=== PATIENT | female | born 1960 | race Caucasian/White ===

== ENCOUNTER 2016-09-21 14:20 | Outpatient (CLI) | payer MEDICAID ==
[~2016-09-21 14:20] MED LIST: ACYC400T PO; ASPI-983 PO; BUDE10.22 IH; CALC-140 PO; CHOL10007 PO; CNC1KV IN; DICL75TA2 PO; EPIN0.3P3 IJ; FLUT16SP22 NSEACH; HYDR-3820 PO; HYDR25SU5 RC; IBUP-2055 PO; MELO7.5T46 PO; METR500T21 PO; MONT10TA21 PO; MONT10TA24 PO; MULT1TAB69 PO; NF-ESOM40C PO; OMEP20CA12 PO; OXYC-197 PO; PRAV20TA3 PO; PRAV40TA2 PO; RT-ALBUINH IH; SUMA100T2 PO; SUMA100T3 PO; ZOLP10TA PO; ZOLP10TA5 PO
== END 2016-09-21 14:42 | disposition home or self-care (01) ==
LOC: SLEEP 14:20
PROVIDERS: ATTEND Nurse Practitioner Family
DX: G47.50 Parasomnia, unspecified (principal); G47.09 Other insomnia; R53.83 Other fatigue

== ENCOUNTER 2016-09-30 13:55 | Outpatient (CLI) | payer MEDICAID | END 2016-09-30 15:00 | disposition home or self-care (01) | LOC: SLEEP 13:55 | PROVIDERS: ATTEND Nurse Practitioner Family | DX: G47.50 Parasomnia, unspecified (principal); G47.09 Other insomnia; R53.83 Other fatigue ==

== ENCOUNTER → 2017-01-26 | Outpatient (CLI) | payer MEDICAID ==
--- NOTE | 2017-01-27 17:43 | Diagnostic Imaging Report ---
EXAMINATION: Bilateral digital screening mammogram with CAD. The current study was also evaluated with a Computer Aided Detection (CAD) system. INDICATION: Screening. No current complaints stated on the questionnaire. COMPARISON: 01/28/16. FINDINGS: The breasts are composed of scattered fibroglandular densities. There is a stable circumscribed nodule in the axillary tail of the right breast suggestive of an intramammary lymph node. Allowing for technique and positional differences, no suspicious change is seen. IMPRESSION: No significant change. ACR BI-RADS Category 2: Benign findings. Result letter will be mailed to the patient. Note: At least 10% of breast cancer is not imaged by mammography. Dictated by: Dictated on workstation # [id number]
== END ==
LOC: RAD 14:36
PROVIDERS: ATTEND Nurse Practitioner Community Health
DX: Z12.31 Encounter for screening mammogram for malignant neoplasm of breast (principal)
CPT/HCPCS: 77067

== ENCOUNTER → 2017-04-19 | Outpatient (CLI) | payer MEDICAID ==
--- NOTE | 2017-04-19 11:44 | Diagnostic Imaging Report ---
EXAMINATION: Bilateral renal ultrasound. INDICATION: History of cysts. FINDINGS: The right kidney is 10.6 and the left kidney is 9.8 cm in length. Simple appearing cysts up to 2 cm in the lower pole of the right kidney are seen. No hydronephrosis. No solid mass. The bladder appears empty and is not well evaluated. IMPRESSION: Simple appearing cysts up to 2 cm in the right kidney are seen. Dictated by: Dictated on workstation # [id number]
== END ==
LOC: RAD 09:30
PROVIDERS: ATTEND Nurse Practitioner Community Health
DX: N28.1 Cyst of kidney, acquired (principal)
CPT/HCPCS: 76770

== ENCOUNTER → 2017-04-19 | Outpatient (CLI) | payer MEDICAID ==
--- NOTE | 2017-04-19 10:42 | Diagnostic Imaging Report ---
PROCEDURE: US Gallbladder. TECHNIQUE: Multiple real-time grayscale images were obtained over the right upper quadrant in various projections. INDICATION: Right upper quadrant abdominal pain. COMPARISON: None. FINDINGS: Normal echogenicity of liver with no focal mass or cyst. No intrahepatic biliary ductal dilatation. The common bile duct measures 4 mm. There is a 1.3 cm mobile stone within the gallbladder. Normal gallbladder wall thickness of 0.2 cm. No pericholecystic fluid. Negative sonographic Montgomery sign. The pancreas is obscured by bowel gas. The right kidney measures 9.9 cm. There are simple appearing cysts in the right kidney measuring up to 2.0 and 1.0 cm. No free fluid in the visualized abdomen. IMPRESSION: Cholelithiasis. No secondary findings of cholecystitis. Dictated by: Dictated on workstation # [id number]
== END ==
LOC: RAD 09:32
PROVIDERS: ATTEND Surgery
DX: K80.20 Calculus of gallbladder without cholecystitis without obstruction (principal)
CPT/HCPCS: 76705

== ENCOUNTER → 2017-04-27 | Outpatient (CLI) | payer MEDICAID | LOC: PREOP 05:40 | PROVIDERS: ATTEND Surgery | DX: Z01.818 Encounter for other preprocedural examination (principal); K80.20 Calculus of gallbladder without cholecystitis without obstruction ==

== ENCOUNTER → 2017-07-05 | Outpatient (CLI) | payer MEDICAID ==
[2017-07-05 11:23] LABS: BILIRUBIN,DIRECT 0.4 MG/DL (0.0-0.3); BILIRUBIN,INDIRECT 0.9 MG/DL; BILIRUBIN,TOTAL 1.3 MG/DL (0.1-1.0); TOTAL PROTEIN 6.4 GM/DL (6.4-8.2)
== END ==
LOC: LAB 10:46
PROVIDERS: ATTEND Surgery
DX: K80.20 Calculus of gallbladder without cholecystitis without obstruction (principal)
CPT/HCPCS: 36415; 80076

== ENCOUNTER 2017-07-11 11:17 | Day surgery (SDC) | payer MEDICAID ==
[~2017-07-11] VITALS: Ht 162.6 cm; Wt 73.5 kg
--- OUTSIDE RECORDS SUMMARY | 2017-07-11 11:35 | XMS REPORT | Clinical Summary ---
Author Author [facility] Organization [facility] Address Unknown Phone Unavailable Care Team Providers Care Child Support Case Officer Name Role Phone JordyCheri COMPUTER OPERATIONS MANAGER PCP Source Comments Some departments are not documenting in the electronic medical record. If you do not see the information that you expected, contact Release of Information in the Health Information Management department at [phone] for further assistance in locating additional records.[facility] Allergies Active Allergy Reactions Severity Noted Date Comments Adhesive Tape (Rosins) RASH, EDEMA Medium 01/24/2017 Bumble Bee PALPITATIONS High 01/24/2017 Cephalexin HIVES, RASH Medium 01/24/2017 Current Medications Prescription Sig. Disp. Refills Start End Date Status Date traZODone (DESYREL) 100 Take 100 mg by mouth at Active mg tablet bedtime daily. sertraline (ZOLOFT) 100 Take 100 mg by mouth Active mg tablet daily. HYDROcodone/acetaminophen Take 1 tablet by mouth Active (+) (NORCO) 10/325 mg every 6 hours as needed tablet for Pain CALCIUM CARBONATE/VITAMIN Take by mouth. Active D3 (CALCIUM + D PO) pantoprazole DR Take 40 mg by mouth Active (PROTONIX) 40 mg tablet daily. cyanocobalamin (VITAMIN Inject 1 mL into the Active B-12, RUBRAMIN) 1,000 muscle every 30 days. mcg/mL injection EPINEPHRINE (EPIPEN IJ) Inject to area(s) as Active directed. budesonide/formoterol Inhale 2 puffs by mouth Active (SYMBICORT HFA) 80-4.5 into the lungs twice mcg/actuation inhalation daily. fluticasone (FLONASE) 50 Apply to each nostril as Active mcg/actuation nasal spray directed daily. Shake bottle gently before using. ASCORBATE CALCIUM Take by mouth. Active (VITAMIN C PO) meloxicam (MOBIC) 7.5 mg Take 7.5 mg by mouth Active tablet daily. albuterol (PROAIR HFA) 90 Inhale 2 puffs by mouth Active mcg/actuation inhaler into the lungs every 6 hours as needed for Wheezing or Shortness of Breath. Shake well before use. sumatriptan succinate Take 100 mg by mouth as Active (IMITREX) 100 mg tablet Needed for Migraine symptoms. Dose may be repeated in 2 hours if needed. Max of 2 tablets in 24 hours. atorvastatin (LIPITOR) 20 Take 20 mg by mouth Active mg tablet daily. mometasone (NASONEX) 50 Apply 2 sprays to each Active mcg/actuation nasal spray nostril as directed daily. lisdexamfetamine Take 30 mg by mouth every Active (VYVANSE) 30 mg capsule morning topiramate (TOPAMAX) 25 Take 25 mg by mouth as Active mg sprinkle capsule directed twice daily. omeprazole DR(+) Take 20 mg by mouth daily Active (PRILOSEC) 20 mg capsule before breakfast. aspirin EC 81 mg tablet Take 81 mg by mouth Active daily. Take with food. tiZANidine (ZANAFLEX) 4 Take 0.5-1 tablets by 30 tablet 5 04/22/20 Active mg tabletIndications: mouth at bedtime as 17 MUSCLE SPASM needed. Indications: MUSCLE SPASM gabapentin (NEURONTIN) TAKE ONE CAPSULE BY MOUTH 90 capsule 5 Active 300 mg capsule ONCE DAILY AT BEDTIME FOR 18 5 DAYS; ONE CAP TWICE DAILY FOR 5 DAYS; ONE CAP THREE TIMES DAILY THEREAFTER Active Problems No known active problems Encounters Date Type Specialty Care Team Description 05/26/2017 Refill Anesthesia Pain Cy Parker MD 04/22/2017 Refill Anesthesia Pain Maria C Cerrato RN from Last 3 Months Family History Medical History Relation Name Comments Arthritis Father Back pain Father Cancer Father Heart problem Father Hypertension Father Kidney Disease Father Arthritis Mother Back pain Mother Hypertension Mother Relation Name Status Comments Father Mother Alive Social History Tobacco Use Types Packs/Day Years Used Date Former Smoker Smokeless Tobacco: Former Quit: User 05/26/2014 Alcohol Use Drinks/Week oz/Week Comments No Sex Assigned at Date Recorded Not on file Last Filed Vital Signs Vital Sign Reading Time Taken Blood Pressure 123/85 03/08/2017 1:20 PM SUPERVISOR BENZENE REFINING Pulse 82 03/08/2017 1:20 PM SUPERVISOR BENZENE REFINING Temperature 36.6 C (97.8 F) 03/08/2017 1:10 PM SUPERVISOR BENZENE REFINING Respiratory Rate 18 03/08/2017 12:09 PM SUPERVISOR BENZENE REFINING Oxygen Saturation 98% 03/08/2017 1:20 PM SUPERVISOR BENZENE REFINING Inhaled Oxygen - - Concentration Weight 68 kg (150 lb) 03/08/2017 12:09 PM SUPERVISOR BENZENE REFINING Height 160 cm (5' 3") 03/08/2017 12:09 PM SUPERVISOR BENZENE REFINING Body Mass Index 26.57 03/08/2017 12:09 PM SUPERVISOR BENZENE REFINING Plan of Treatment Health Maintenance Due Date Last Done Comments HEPATITIS C SCREENING 1960 PHYSICAL (COMPREHENSIVE) 1967 EXAM PERTUSSIS VACCINE 1971 HIV SCREENING 1975 TETANUS VACCINE 1977 CERVICAL CANCER SCREENING 1990 BREAST CANCER SCREENING 2000 COLORECTAL CANCER 2010 SCREENING INFLUENZA VACCINE 01/30/2018 Results Not on filefrom Last 3 Months
--- OUTSIDE RECORDS SUMMARY | 2017-07-11 11:35 | XMS REPORT | Encounter Summary ---
Author Author [facility] Organization [facility] Address Unknown Phone Unavailable Care Team Providers Care Oilfield Plant And Field Operator Name Role Phone JordyCheri sands DATA MIGRATION LEAD PCP Reason for Visit * Reason Comments Medication Refill Encounter Details Date Type Department Care Team Description 05/26/2017 Refill Spine Center Anesthesia Cy Parker MD [facility] [address] [place] [address] [place] [address] [phone] Social History Tobacco Use Types Packs/Day Years Used Date Former Smoker Smokeless Tobacco: Former Quit: User 05/26/2014 Alcohol Use Drinks/Week oz/Week Comments No Sex Assigned at Date Recorded Not on file as of this encounter Functional Status Functional Status Response Date of Assessment Does the patient have a hearing impairment: No 03/08/2017 Does the patient have a visual impairment: Yes 03/08/2017 Does the patient have impaired ambulation: No 03/08/2017 Does the patient have an activity of daily living No 03/08/2017 (ADL) impairment: Does the patient have an instrumental activity of No 03/08/2017 daily living (IADL) impairment: Cognitive Status Response Date of Assessment Does the patient have a cognitive impairment: No 03/08/2017 as of this encounter Miscellaneous Notes * Telephone Encounter - Maria C Cerrato RN - 05/26/2017 4:37 PM CENTRIFUGAL SUPERVISOR Refill request for gabapentin 300 mg po tid Date of last refill per chart 01/24/2017. Last visit 03/08/2017. Follow up appointment n/a. Refill per protocol. in this encounter Plan of Treatment Not on fileas of this encounter Visit Diagnoses Not on filein this encounter
--- OUTSIDE RECORDS SUMMARY | 2017-07-11 11:35 | XMS REPORT | Encounter Summary ---
Author Author [facility] Organization [facility] Address Unknown Phone Unavailable Care Team Providers Care Medical Planner Name Role Phone Cheri Spence RECEIVING ASSOCIATE STORE PCP Reason for Visit * Reason Comments Medication Refill Encounter Details Date Type Department Care Team Description 04/22/2017 Refill Spine Center Anesthesia Maria C Cerrato RN [facility] [address] [place] [id number] Social History Tobacco Use Types Packs/Day Years [...] Encounter - Maria C Cerrato RN - 04/22/2017 10:39 AM MUSIC DEPARTMENT CHAIR Refill request for refill of tizanidine 4 mg po qhs prn Date of last refill per chart or pharmacy 03/27/2017. Last office visit 03/08/2017. Follow up appointment n/a. Provider notified Yes. in this encounter Plan of Treatment Not on fileas of this encounter Visit Diagnoses Not on filein this encounter
--- OUTSIDE RECORDS SUMMARY | 2017-07-11 11:37 | XMS REPORT | Continuity of Care Document ---
Author Author [facility] Organization [facility] Address Unknown Phone Unavailable Allergies Active Description Code Type Severity Reaction Onset Reported/Identified Relationship to Patient Clinical Status Yes No Allergy Information Available [id number] Drug Allergy Unknown N/A 2013 Yes sulfamethoxazole [id number] Drug Allergy Unknown N/A 03/14/2015 Yes trimethoprim [id number] Drug Allergy Unknown N/A 03/14/2015 Medications There is no data. Problems Date Dx Coded Attending Type Code Diagnosis Diagnosed By 03/31/1329 BERNARDO COBIAN, DEMETRIA Holley Ot M19.012 PRIMARY OSTEOARTHRITIS, LEFT SHOULDER 09/06/2013 JEFF CRUM HOUSE PIPING INSPECTOR Ot 728.87 MUSCLE WEAKNESS (GENERALIZED) 09/06/2013 JEFF CRUM HOUSE PIPING INSPECTOR Ot V43.65 KNEE JOINT REPLACEMENT STATUS 09/06/2013 JEFF CRUM HOUSE PIPING INSPECTOR Ot V57.1 PHYSICAL THERAPY NEC 03/14/2014 JANINE PERAZAP Ot 724.3 03/14/2014 JANINE PERAZAP Ot V57.1 03/15/2014 JANINE PERAZA HOUSE PIPING INSPECTOR Ot 724.3 03/15/2014 JANINE PERAZAP Ot V57.1 03/15/2014 DEMETRIA PHILLIPS MD Ot 305.1 03/15/2014 DEMETRIA PHILLIPS MD Ot 306.4 03/15/2014 DEMETRIA PHILLIPS MD Ot 478.19 03/26/2014 JANINE PERAZAP Ot V76.12 04/05/2014 JANINE PERAZAP Ot 724.3 04/05/2014 JANINE PERAZAP Ot V57.1 04/05/2014 JANINE PERAZAP Ot 724.3 04/05/2014 JANINE PERAZAP Ot V57.1 04/08/2014 DEMETRIA PHILLIPS MD Ot 305.1 04/08/2014 DEMETRIA PHILLIPS MD Ot 306.4 04/08/2014 JACQUELINE COBIAN, DEMETRIA P Ot 478.19 04/11/2014 JANINE PERAZA HOUSE PIPING INSPECTOR Ot 724.3 04/11/2014 JANINE PERAZA HOUSE PIPING INSPECTOR Ot V57.1 04/11/2014 JANINE PERAZA HOUSE PIPING INSPECTOR Ot 724.3 04/11/2014 JANINE PERAZA HOUSE PIPING INSPECTOR Ot V57.1 04/22/2014 JANINE PERAZA HOUSE PIPING INSPECTOR Ot 724.3 04/22/2014 JANINE PERAZA HOUSE PIPING INSPECTOR Ot V57.1 04/30/2014 JANINE PERAZA HOUSE PIPING INSPECTOR Ot 724.3 SCIATICA 04/30/2014 JANINE PERAZA HOUSE PIPING INSPECTOR Ot V57.1 PHYSICAL THERAPY NEC 07/25/2014 JANINE PERAZA HOUSE PIPING INSPECTOR Ot V76.12 07/25/2014 CONRADO MCDERMOTT ZONING ADMINISTRATOR Ot 473.0 07/25/2014 CONRADO MCDERMOTT ZONING ADMINISTRATOR Ot 473.2 07/25/2014 CONRADO MCDERMOTT ZONING ADMINISTRATOR Ot 477.9 07/25/2014 JANINE PERAZA HOUSE PIPING INSPECTOR Ot V76.12 07/25/2014 JACQUELINE COBIAN, DEMETRIA P Ot 305.1 07/25/2014 JACQUELINE COBIAN, DEMETRIA P Ot 306.4 07/25/2014 JACQUELINE COBIAN, DEMETRIA P Ot 478.19 07/26/2014 MELO COBIAN, TERE Hager Ot 562.10 07/26/2014 MELO COBIAN, TERE A Ot 571.8 07/26/2014 MELO COBIAN, TERE A Ot 599.70 07/26/2014 MELO COBIAN, TERE A Ot 562.10 07/26/2014 MELO COBIAN, TERE A Ot 571.8 07/26/2014 MELO COBIAN, TERE A Ot 599.70 07/30/2014 MELO COBIAN, TERE A Ot 593.9 08/08/2014 MELO COBIAN, TERE A Ot 562.10 08/08/2014 MELO COBIAN, TERE A Ot 571.8 08/08/2014 MELO COBIAN, TERE A Ot 599.70 08/13/2014 MELO COBIAN, TERE A Ot 593.9 02/24/2015 JEFF CRUM HOUSE PIPING INSPECTOR Ot M75.42 03/19/2015 BERNARDO COBIAN, DEMETRIA P Ot M67.432 GANGLION, LEFT WRIST 03/19/2015 BERNARDO COBIAN, DEMETRIA P Ot S43.439A SUPERIOR GLENOID LABRUM LESION OF UNSP S 03/25/2015 JANINE PERAZA HOUSE PIPING INSPECTOR Ot V76.12 03/25/2015 CONRADO MCDERMOTT ZONING ADMINISTRATOR Ot 473.0 03/25/2015 CONRADO MCDERMOTT ZONING ADMINISTRATOR Ot 473.2 03/25/2015 CONRADO MCDERMOTT ZONING ADMINISTRATOR Ot 477.9 03/25/2015 JANINE PERAZA HOUSE PIPING INSPECTOR Ot V76.12 03/25/2015 JACQUELINE COBIAN, DEMETRIA P Ot 305.1 03/25/2015 JACQUELINE COBIAN, DEMETRIA P Ot 306.4 03/25/2015 JACQUELINE COBIAN, DEMETRIA P Ot 478.19 03/25/2015 MELO COBIAN, TERE A Ot 562.10 03/25/2015 MELO COBIAN, TERE A Ot 571.8 03/25/2015 MELO COBIAN, TERE A Ot 599.70 03/25/2015 MELO COBIAN, TERE A Ot 593.9 03/25/2015 JEFF CRUM HOUSE PIPING INSPECTOR Ot M75.42 03/25/2015 BERNARDO COBIAN, DEMETRIA P Ot M67.432 03/25/2015 BERNARDO COBIAN, DEMETRIA P Ot S43.439A 03/25/2015 BERNARDO COBIAN, DEMETRIA P Ot Z01.818 03/25/2015 BERNARDO COBIAN, DEMETRIA P Ot Z11.2 03/28/2015 BERNARDO COBIAN, DEMETRIA P Ot S43.439A 04/11/2015 BERNARDO COBIAN, DEMETRIA P Ot S43.439A 04/22/2015 BERNARDO COBIAN, DEMETRIA P Ot S43.439A 05/01/2015 BERNARDO COBIAN, DEMETRIA P Ot S43.439A 05/01/2015 BERNARDO COBIAN, DEMETRIA P Ot S43.439A 05/13/2015 BERNARDO COBIAN, DEMETRIA P Ot S43.439A 05/28/2015 BERNARDO COBIAN, DEMETRIA P Ot S43.439A SUPERIOR GLENOID LABRUM LESION OF UNSP S 07/13/2015 BRITNEY HALE FRUIT AND VEGETABLE FACTORY WORKER Ot D72.829 ELEVATED WHITE BLOOD CELL COUNT, UNSPECI 07/13/2015 BRITNEY HALE FRUIT AND VEGETABLE FACTORY WORKER Ot R93.5 ABN FINDINGS ON DX IMAGING OF ABD REGION 07/13/2015 BRITNEY HALE FRUIT AND VEGETABLE FACTORY WORKER Ot Z98.84 BARIATRIC SURGERY STATUS 07/15/2015 BRITNEY HALE FRUIT AND VEGETABLE FACTORY WORKER Ot D72.829 07/15/2015 BRITNEY HALE FRUIT AND VEGETABLE FACTORY WORKER Ot R93.5 07/15/2015 BRITNEY HALE FRUIT AND VEGETABLE FACTORY WORKER Ot Z98.84 09/17/2015 MIKEY PADGETT MD Ot R53.83 OTHER FATIGUE 09/30/2015 MIKEY PADGETT MD Ot R53.83 OTHER FATIGUE 12/11/2015 JANINE PERAZA Ot V76.12 OTH SCREEN MAMMO-MALIGN NEOPLASM OF TREE 12/11/2015 CONRADO MCDERMOTT ZONING ADMINISTRATOR Ot 473.0 CHR MAXILLARY SINUSITIS 12/11/2015 CONRADO MCDERMOTT ZONING ADMINISTRATOR Ot 473.2 CHR ETHMOIDAL SINUSITIS 12/11/2015 CONRADO MCDERMOTT ZONING ADMINISTRATOR Ot 477.9 ALLERGIC RHINITIS NOS 12/11/2015 JANINE PERAZA Ot V76.12 OTH SCREEN MAMMO-MALIGN NEOPLASM OF TREE 12/11/2015 DEMETRIA PHILLIPS MD Ot 305.1 TOBACCO USE DISORDER 12/11/2015 DEMETRIA PHILLIPS MD Ot 306.4 PSYCHOGENIC GI DISEASE 12/11/2015 DEMETRIA PHILLIPS MD Ot 478.19 OTHER DISEASE OF NASAL CAVITY AND SINUSE 12/11/2015 TERE ALEJO MD Ot 562.10 DIVERTICULOSIS COLON (W/O MENT OF HEMORR 12/11/2015 TERE ALEJO MD Ot 571.8 CHRONIC LIVER DIS NEC 12/11/2015 TERE ALEJO MD Ot 599.70 HEMATURIA, UNSPECIFIED 12/11/2015 TERE ALEJO MD Ot 593.9 RENAL URETERAL DIS NOS 12/11/2015 JEFF CRUM HOUSE PIPING INSPECTOR Ot M75.42 IMPINGEMENT SYNDROME OF LEFT SHOULDER 12/11/2015 DEMETRIA CHANG MD Ot M67.432 GANGLION, LEFT WRIST 12/11/2015 DEMETRIA CHANG MD Ot S43.439A SUPERIOR GLENOID LABRUM LESION OF UNSP S 12/11/2015 DEMETRIA CHANG MD Ot Z01.818 ENCOUNTER FOR OTHER PREPROCEDURAL EXAMIN 12/11/2015 DEMETRIA CHANG MD Ot Z11.2 ENCOUNTER FOR SCREENING FOR OTHER BACTER 12/11/2015 MIKEY PADGETT MD Ot R53.83 OTHER FATIGUE 12/23/2015 JANINE PERAZA Ot E78.5 HYPERLIPIDEMIA, UNSPECIFIED 12/23/2015 JANINE PERAZA Ot Z98.84 BARIATRIC SURGERY STATUS 12/23/2015 JANINE PERAZAP Ot M85.851 OTH DISRD OF BONE DENSITY AND STRUCTURE, 12/23/2015 JANINE PERAZAP Ot M85.852 OTH DISRD OF BONE DENSITY AND STRUCTURE, 12/23/2015 JANINE PERAZAP Ot M85.88 OTH DISRD OF BONE DENSITY AND STRUCTURE, 12/23/2015 JANINE PERAZAP Ot Z98.84 BARIATRIC SURGERY STATUS 12/30/2015 JANINE PERAZAP Ot E78.5 HYPERLIPIDEMIA, UNSPECIFIED 12/30/2015 JANINE PERAZA HOUSE PIPING INSPECTOR Ot Z98.84 BARIATRIC SURGERY STATUS 01/28/2016 JANINE PERAZA Ot V76.12 OTH SCREEN MAMMO-MALIGN NEOPLASM OF TREE 01/28/2016 CONRADO MCDERMOTT ZONING ADMINISTRATOR Ot 473.0 CHR MAXILLARY SINUSITIS 01/28/2016 CONRADO MCDERMOTT ZONING ADMINISTRATOR Ot 473.2 CHR ETHMOIDAL SINUSITIS 01/28/2016 CONRADO MCDERMOTT ZONING ADMINISTRATOR Ot 477.9 ALLERGIC RHINITIS NOS 01/28/2016 JANINE PERAZA Ot V76.12 OTH SCREEN MAMMO-MALIGN NEOPLASM OF TREE 01/28/2016 JACQUELINE COBIAN, DEMETRIA Holley Ot 305.1 TOBACCO USE DISORDER 01/28/2016 DEMETRIA PHILLIPS MD Ot 306.4 PSYCHOGENIC GI DISEASE 01/28/2016 DEMETRIA PHILLIPS MD Ot 478.19 OTHER DISEASE OF NASAL CAVITY AND SINUSE 01/28/2016 MELO COBIAN, TERE Hager Ot 562.10 DIVERTICULOSIS COLON (W/O MENT OF HEMORR 01/28/2016 MELO COBIAN, TERE Hager Ot 571.8 CHRONIC LIVER DIS NEC 01/28/2016 MELO COBIAN, TERE Hager Ot 599.70 HEMATURIA, UNSPECIFIED 01/28/2016 TERE ALEJO MD Ot 593.9 RENAL URETERAL DIS NOS 01/28/2016 SKYLA JEFF Christina DUMONT Ot M75.42 IMPINGEMENT SYNDROME OF LEFT SHOULDER 01/28/2016 BERNARDO COBIAN, DEMETRIA Holley Ot M67.432 GANGLION, LEFT WRIST 01/28/2016 DEMETRIA CHANG MD Ot S43.439A SUPERIOR GLENOID LABRUM LESION OF UNSP S 01/28/2016 DEMETRIA CHANG MD Ot Z01.818 ENCOUNTER FOR OTHER PREPROCEDURAL EXAMIN 01/28/2016 DEMETRIA CHANG MD Ot Z11.2 ENCOUNTER FOR SCREENING FOR OTHER BACTER 01/28/2016 LORIN COBIAN, MIKEY Cartwright Ot R53.83 OTHER FATIGUE 01/28/2016 JANINE PERAZA Ot M85.851 OTH DISRD OF BONE DENSITY AND STRUCTURE, 01/28/2016 JANINE PERAZAP Ot M85.852 OTH DISRD OF BONE DENSITY AND STRUCTURE, 01/28/2016 JANINE PERAZA Ot M85.88 OTH DISRD OF BONE DENSITY AND STRUCTURE, 01/28/2016 JANINE PERAZA Ot Z98.84 BARIATRIC SURGERY STATUS 01/28/2016 JANINE PERAZA Ot E78.5 HYPERLIPIDEMIA, UNSPECIFIED 01/28/2016 JANINE PERAZAP Ot Z98.84 BARIATRIC SURGERY STATUS 01/29/2016 JANINE PERAZAP Ot M51.36 OTHER INTERVERTEBRAL DISC DEGENERATION, 01/29/2016 JANINE PERAZA Ot Z12.31 ENCNTR SCREEN MAMMOGRAM FOR MALIGNANT NE 01/29/2016 JANINE PERAZA Ot M51.36 OTHER INTERVERTEBRAL DISC DEGENERATION, 01/29/2016 JANINE PERAZA Ot Z12.31 ENCNTR SCREEN MAMMOGRAM FOR MALIGNANT NE 02/02/2016 MADDIE COBIAN, DOMINGO Verduzco Ot J44.9 CHRONIC OBSTRUCTIVE PULMONARY DISEASE, U 02/02/2016 DOMINGO PERKINS MD Ot R00.2 PALPITATIONS 02/02/2016 DOMINGO PERKINS MD Ot R07.89 OTHER CHEST PAIN 02/02/2016 DOMINGO PERKINS MD Ot R07.9 CHEST PAIN, UNSPECIFIED 02/02/2016 DOMINGO PERKINS MD Ot R20.2 PARESTHESIA OF SKIN 02/03/2016 MIS HARRIS L HOUSE PIPING INSPECTOR Ot I25.10 ATHSCL HEART DISEASE OF [place] CORONARY 02/03/2016 BAIMAMIS L HOUSE PIPING INSPECTOR Ot R06.09 OTHER FORMS OF DYSPNEA 02/03/2016 MIS HARRIS L HOUSE PIPING INSPECTOR Ot R55 SYNCOPE AND COLLAPSE 02/03/2016 MIS HARRIS L HOUSE PIPING INSPECTOR Ot R61 GENERALIZED HYPERHIDROSIS 02/03/2016 MIS HARRIS L HOUSE PIPING INSPECTOR Ot Z79.899 OTHER USP (CURRENT) DRUG THERAPY 02/03/2016 MIS HARRIS L HOUSE PIPING INSPECTOR Ot Z87.891 PERSONAL HISTORY OF NICOTINE DEPENDENCE 02/03/2016 MIS HARRIS L HOUSE PIPING INSPECTOR Ot Z98.84 BARIATRIC SURGERY STATUS 02/03/2016 JENN COBIAN FACC, CRISTIANE FACP CCDS Ot R06.02 SHORTNESS OF BREATH 02/03/2016 JENN COBIAN FACC, ALI FACP CCDS Ot R94.31 ABNORMAL ELECTROCARDIOGRAM [ECG] [EKG] 02/04/2016 DOMINGO PERKINS MD Ot J44.9 CHRONIC OBSTRUCTIVE PULMONARY DISEASE, U 02/04/2016 DOMINGO PERKINS MD Ot R00.2 PALPITATIONS 02/04/2016 DOMINGO PERKINS MD Ot R07.89 OTHER CHEST PAIN 02/04/2016 DOMINGO PERKINS MD Ot R07.9 CHEST PAIN, UNSPECIFIED 02/04/2016 DOMINGO PERKINS MD Ot R20.2 PARESTHESIA OF SKIN 02/05/2016 JENN COBIAN FACC, ALI FACP CCDS Ot R06.02 SHORTNESS OF BREATH 02/05/2016 JENN COBIAN FACC, ALI FACP CCDS Ot R94.31 ABNORMAL ELECTROCARDIOGRAM [ECG] [EKG] 02/11/2016 MIS HARRIS HOUSE PIPING INSPECTOR Ot 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 02/11/2016 JANINE PERAZA HOUSE PIPING INSPECTOR Ot M51.36 OTHER INTERVERTEBRAL DISC DEGENERATION, 02/11/2016 JANINE PERAZAP Ot Z12.31 ENCNTR SCREEN MAMMOGRAM FOR MALIGNANT NE 02/20/2016 MIS HARRIS HOUSE PIPING INSPECTOR Ot 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 02/25/2016 JENN COBIAN FACC, ALI FACP CCDS Ot R06.02 SHORTNESS OF BREATH 02/25/2016 JENN COBIAN FACC, ALI FACP CCDS Ot R94.31 ABNORMAL ELECTROCARDIOGRAM [ECG] [EKG] 03/23/2016 BERNARDO COBIAN, DEMETRIA Holley Ot M19.012 PRIMARY OSTEOARTHRITIS, LEFT SHOULDER 03/24/2016 BERNARDO COBIAN, DEMETRIA Holley Ot M19.012 PRIMARY OSTEOARTHRITIS, LEFT SHOULDER 03/24/2016 BERNARDO COBIAN, DEMETRIA Holley Ot M19.012 PRIMARY OSTEOARTHRITIS, LEFT SHOULDER 04/20/2016 BERNARDO COBIAN, DEMETRIA Holley Ot M19.012 PRIMARY OSTEOARTHRITIS, LEFT SHOULDER 09/21/2016 KIMMY CHACKO FRUIT AND VEGETABLE FACTORY WORKER Ot G47.09 OTHER INSOMNIA 09/21/2016 OFELIA CHACKOINE E FRUIT AND VEGETABLE FACTORY WORKER Ot G47.50 PARASOMNIA, UNSPECIFIED 09/21/2016 OFELIA CHACKOINE E FRUIT AND VEGETABLE FACTORY WORKER Ot R53.83 OTHER FATIGUE 09/30/2016 OFELIA CHACKOINE E FRUIT AND VEGETABLE FACTORY WORKER Ot G47.09 OTHER INSOMNIA 09/30/2016 KIMMY CHACKO E FRUIT AND VEGETABLE FACTORY WORKER Ot G47.50 PARASOMNIA, UNSPECIFIED 09/30/2016 OFELIA CHACKOINE Bonnie FRUIT AND VEGETABLE FACTORY WORKER Ot R53.83 OTHER FATIGUE 10/02/2016 OFELIA CHACKOINE E FRUIT AND VEGETABLE FACTORY WORKER Ot G47.09 OTHER INSOMNIA 10/02/2016 OFELIA CHACKOINE E FRUIT AND VEGETABLE FACTORY WORKER Ot G47.50 PARASOMNIA, UNSPECIFIED 10/02/2016 KIMMY CHACKO E FRUIT AND VEGETABLE FACTORY WORKER Ot R53.83 OTHER FATIGUE 01/27/2017 JANINE PERAZA HOUSE PIPING INSPECTOR Ot Z12.31 ENCNTR SCREEN MAMMOGRAM FOR MALIGNANT NE 02/01/2017 JANINE PERAZAP Ot Z12.31 ENCNTR SCREEN MAMMOGRAM FOR MALIGNANT NE 02/04/2017 JANINE PERAZA Ot Z12.31 ENCNTR SCREEN MAMMOGRAM FOR MALIGNANT NE 04/12/2017 BERNARDO COBIAN, DEMETRIA Holley Ot M25.712 OSTEOPHYTE, LEFT SHOULDER 04/28/2017 SABINE COBIAN, DEBI Cartwright Ot K80.20 CALCULUS OF GALLBLADDER W/O CHOLECYSTITI 04/28/2017 SABNIE COBIAN, DEBI Cartwright Ot Z01.818 ENCOUNTER FOR OTHER PREPROCEDURAL EXAMIN 04/28/2017 JANINE PERAZA Ot N28.1 CYST OF KIDNEY, ACQUIRED 04/28/2017 SABNIE COBIAN, DEBI Cartwright Ot K80.20 CALCULUS OF GALLBLADDER W/O CHOLECYSTITI 05/09/2017 DEBI REGALADO MD Ot K80.20 CALCULUS OF GALLBLADDER W/O CHOLECYSTITI 05/09/2017 SABINE COBIAN, DEBI Cartwright Ot Z01.818 ENCOUNTER FOR OTHER PREPROCEDURAL EXAMIN 05/09/2017 DEBI REGALADO MD Ot K80.20 CALCULUS OF GALLBLADDER W/O CHOLECYSTITI 05/09/2017 DEBI REGALADO MD Ot Z01.818 ENCOUNTER FOR OTHER PREPROCEDURAL EXAMIN Procedures There is no data. Results Test Result Range Comprehensive metabolic panel - 12/19/15 10:42 Serum or plasma sodium measurement (moles/volume) 140 mmol/L 135-145 Serum or plasma potassium measurement (moles/volume) 4.0 mmol/L 3.6-5.0 Serum or plasma chloride measurement (moles/volume) 108 mmol/L 98-107 Carbon dioxide 26 mmol/L 21-32 Serum or plasma anion gap determination (moles/volume) 6 mmol/L 5-14 Serum or plasma urea nitrogen measurement (mass/volume) 16 mg/dL 7-18 Serum or plasma creatinine measurement (mass/volume) 0.72 mg/dL 0.60-1.30 Serum or plasma urea nitrogen/creatinine mass ratio 22 NRG Serum or plasma creatinine measurement with calculation of estimated glomerular filtration rate > NRG Serum or plasma glucose measurement (mass/volume) 84 mg/dL 70-105 Serum or plasma calcium measurement (mass/volume) 9.7 mg/dL 8.5-10.1 Serum or plasma total bilirubin measurement (mass/volume) 1.3 mg/dL 0.1-1.0 Serum or plasma alkaline phosphatase measurement (enzymatic activity/volume) 66 U/L 40-136 Serum or plasma aspartate aminotransferase measurement (enzymatic activity/ volume) 13 U/L 5-34 Serum or plasma alanine aminotransferase measurement (enzymatic activity/volume ) 14 U/L 0-55 Serum or plasma protein measurement (mass/volume) 6.4 g/dL 6.4-8.2 Serum or plasma albumin measurement (mass/volume) 4.0 g/dL 3.2-4.5 Automated blood complete blood count (hemogram) panel - 12/19/15 10:45 Blood leukocytes automated count (number/volume) 7.1 10*3/uL 4.3-11.0 Blood erythrocytes automated count (number/volume) 4.48 10*6/uL 4.35-5.85 Venous blood hemoglobin measurement (mass/volume) 13.2 g/dL 11.5-16.0 Blood hematocrit (volume fraction) 39 % 35-52 Automated erythrocyte mean corpuscular volume 87 [foz_us] 80-99 Automated erythrocyte mean corpuscular hemoglobin (mass per erythrocyte) 30 pg 25-34 Automated erythrocyte mean corpuscular hemoglobin concentration measurement ( mass/volume) 34 g/dL 32-36 Automated erythrocyte distribution width ratio 14.8 % 10.0-14.5 Automated blood platelet count (count/volume) 288 10*3/uL 130-400 Automated blood platelet mean volume measurement 11.0 [foz_us] 7.4-10.4 Lipid 1996 panel - 12/19/15 10:45 Serum or plasma triglyceride measurement (mass/volume) 123 mg/dL <150 Serum or plasma cholesterol measurement (mass/volume) 226 mg/dL < 200 Serum or plasma cholesterol in HDL measurement (mass/volume) 49 mg/ dL 40-60 Cholesterol in LDL [mass/volume] in serum or plasma by direct assay 163 mg/dL 1-129 Serum or plasma cholesterol in VLDL measurement (mass/volume) 25 mg/ dL 5-40 Complete blood count (CBC) with automated white blood cell (WBC) differential - 02/02/16 11:17 Blood leukocytes automated count (number/volume) 7.8 10*3/uL 4.3-11.0 Blood erythrocytes automated count (number/volume) 3.94 10*6/uL 4.35-5.85 Venous blood hemoglobin measurement (mass/volume) 11.7 g/dL 11.5-16.0 Blood hematocrit (volume fraction) 34 % 35-52 Automated erythrocyte mean corpuscular volume 87 [foz_us] 80-99 Automated erythrocyte mean corpuscular hemoglobin (mass per erythrocyte) 30 pg 25-34 Automated erythrocyte mean corpuscular hemoglobin concentration measurement ( mass/volume) 34 g/dL 32-36 Automated erythrocyte distribution width ratio 13.6 % 10.0-14.5 Automated blood platelet count (count/volume) 253 10*3/uL 130-400 Automated blood platelet mean volume measurement 10.9 [foz_us] 7.4-10.4 Automated blood neutrophils/100 leukocytes 55 % 42-75 Automated blood lymphocytes/100 leukocytes 34 % 12-44 Blood monocytes/100 leukocytes 7 % 0-12 Automated blood eosinophils/100 leukocytes 3 % 0-10 Automated blood basophils/100 leukocytes 0 % 0-10 Blood neutrophils automated count (number/volume) 4.3 10*3 1.8-7.8 Blood lymphocytes automated count (number/volume) 2.6 10*3 1.0-4.0 Blood monocytes automated count (number/volume) 0.6 10*3 0.0-1.0 Automated eosinophil count 0.2 10*3/uL 0.0-0.3 Automated blood basophil count (count/volume) 0.0 10*3/uL 0.0-0.1 PT panel in platelet poor plasma by coagulation assay - 02/02/16 11:17 Prothrombin time (PT) in platelet poor plasma by coagulation assay 13.1 s 12.2-14.7 INR in platelet poor plasma or blood by coagulation assay 1.0 0.8-1.4 Activated partial thromboplastin time (aPTT) in platelet poor plasma bycoagulation assay - 02/02/16 11:17 Activated partial thromboplastin time (aPTT) in platelet poor plasma bycoagulation assay 29 s 24-35 Comprehensive metabolic panel - 02/02/16 11:17 Serum or plasma sodium measurement (moles/volume) 137 mmol/L 135-145 Serum or plasma potassium measurement (moles/volume) 3.7 mmol/L 3.6-5.0 Serum or plasma chloride measurement (moles/volume) 108 mmol/L 98-107 Carbon dioxide 19 mmol/L 21-32 Serum or plasma anion gap determination (moles/volume) 10 mmol/L 5-14 Serum or plasma urea nitrogen measurement (mass/volume) 15 mg/dL 7-18 Serum or plasma creatinine measurement (mass/volume) 0.70 mg/dL 0.60-1.30 Serum or plasma urea nitrogen/creatinine mass ratio 21 NRG Serum or plasma creatinine measurement with calculation of estimated glomerular filtration rate > NRG Serum or plasma glucose measurement (mass/volume) 86 mg/dL 70-105 Serum or plasma calcium measurement (mass/volume) 9.1 mg/dL 8.5-10.1 Serum or plasma total bilirubin measurement (mass/volume) 0.8 mg/dL 0.1-1.0 Serum or plasma alkaline phosphatase measurement (enzymatic activity/volume) 59 U/L 40-136 Serum or plasma aspartate aminotransferase measurement (enzymatic activity/ volume) 11 U/L 5-34 Serum or plasma alanine aminotransferase measurement (enzymatic activity/volume ) 9 U/L 0-55 Serum or plasma protein measurement (mass/volume) 6.0 g/dL 6.4-8.2 Serum or plasma albumin measurement (mass/volume) 3.8 g/dL 3.2-4.5 Magnesium - 02/02/16 11:17 Magnesium 2.3 mg/dL 1.8-2.4 Serum or plasma troponin i.cardiac measurement (mass/volume) - 02/02/16 11:17 Serum or plasma troponin i.cardiac measurement (mass/volume) < ng/ mL <0.30 Myoglobin, serum - 02/02/16 11:17 Myoglobin, serum 23.8 ng/mL 10.0-92.0 Automated blood complete blood count (hemogram) panel - 02/03/16 11:13 Blood leukocytes automated count (number/volume) 8.5 10*3/uL 4.3-11.0 Blood erythrocytes automated count (number/volume) 4.50 10*6/uL 4.35-5.85 Venous blood hemoglobin measurement (mass/volume) 13.2 g/dL 11.5-16.0 Blood hematocrit (volume fraction) 39 % 35-52 Automated erythrocyte mean corpuscular volume 87 [foz_us] 80-99 Automated erythrocyte mean corpuscular hemoglobin (mass per erythrocyte) 29 pg 25-34 Automated erythrocyte mean corpuscular hemoglobin concentration measurement ( mass/volume) 34 g/dL 32-36 Automated erythrocyte distribution width ratio 14.1 % 10.0-14.5 Automated blood platelet count (count/volume) 273 10*3/uL 130-400 Automated blood platelet mean volume measurement 11.3 [foz_us] 7.4-10.4 PT panel in platelet poor plasma by coagulation assay - 02/03/16 11:13 Prothrombin time (PT) in platelet poor plasma by coagulation assay 12.5 s 12.2-14.7 INR in platelet poor plasma or blood by coagulation assay 1.0 0.8-1.4 Activated partial thromboplastin time (aPTT) in platelet poor plasma bycoagulation assay - 02/03/16 11:13 Activated partial thromboplastin time (aPTT) in platelet poor plasma bycoagulation assay 28 s 24-35 Comprehensive metabolic panel - 02/03/16 11:13 Serum or plasma sodium measurement (moles/volume) 140 mmol/L 135-145 Serum or plasma potassium measurement (moles/volume) 3.6 mmol/L 3.6-5.0 Serum or plasma chloride measurement (moles/volume) 108 mmol/L 98-107 Carbon dioxide 22 mmol/L 21-32 Serum or plasma anion gap determination (moles/volume) 10 mmol/L 5-14 Serum or plasma urea nitrogen measurement (mass/volume) 18 mg/dL 7-18 Serum or plasma creatinine measurement (mass/volume) 0.78 mg/dL 0.60-1.30 Serum or plasma urea nitrogen/creatinine mass ratio 23 NRG Serum or plasma creatinine measurement with calculation of estimated glomerular filtration rate > NRG Serum or plasma glucose measurement (mass/volume) 82 mg/dL 70-105 Serum or plasma calcium measurement (mass/volume) 9.8 mg/dL 8.5-10.1 Serum or plasma total bilirubin measurement (mass/volume) 1.1 mg/dL 0.1-1.0 Serum or plasma alkaline phosphatase measurement (enzymatic activity/volume) 69 U/L 40-136 Serum or plasma aspartate aminotransferase measurement (enzymatic activity/ volume) 14 U/L 5-34 Serum or plasma alanine aminotransferase measurement (enzymatic activity/volume ) 14 U/L 0-55 Serum or plasma protein measurement (mass/volume) 6.8 g/dL 6.4-8.2 Serum or plasma albumin measurement (mass/volume) 4.2 g/dL 3.2-4.5 Lipid 1996 panel - 02/03/16 11:13 Serum or plasma triglyceride measurement (mass/volume) 81 mg/dL <150 Serum or plasma cholesterol measurement (mass/volume) 234 mg/dL < 200 Serum or plasma cholesterol in HDL measurement (mass/volume) 58 mg/ dL 40-60 Cholesterol in LDL [mass/volume] in serum or plasma by direct assay 159 mg/dL 1-129 Serum or plasma cholesterol in VLDL measurement (mass/volume) 16 mg/ dL 5-40 THYROID STIMULATING HORMONE - 02/03/16 11:13 THYROID STIMULATING HORMONE 0.76 u[iU]/mL 0.35-4.94 Methicillin resistant Staphylococcus aureus (MRSA) screening culture - 11:13 Methicillin resistant Staphylococcus aureus (MRSA) screening culture NEG NRG Encounters ACCT No. Visit Date/Time Discharge Status Pt. Type Provider Facility Loc./Unit Complaint [id number] 12/19/2014 12:02:19 12/19/2014 23:59:59 CLS Outpatient Joce, V S [id number] 07/05/2017 10:46:00 07/05/2017 23:59:59 CLS Outpatient DEBI REGALADO MD [facility] LAB [place] [id number] 05/04/2017 08:00:00 05/04/2017 23:59:59 CLS Preadmit DEBI REGALADO MD [facility] SDC [place] [id number] 04/27/2017 05:40:00 04/27/2017 23:59:59 CLS Outpatient DEBI REGALADO MD [facility] PREOP [place] [id number] 04/19/2017 09:32:00 04/19/2017 23:59:59 CLS Outpatient DEBI REGALADO MD [facility] RAD RT UPPER QUAD PAIN [id number] 04/19/2017 09:30:00 04/19/2017 23:59:59 CLS Outpatient JANINE PERAZA [facility] RAD N28.1 CYST OF RIGHT KIDNEY [id number] 03/09/2017 11:15:00 03/09/2017 23:59:59 CLS Outpatient DEMETRIA CHANG MD [facility] RAD ROTATOR CUFF TEAR [id number] 01/26/2017 14:36:00 01/26/2017 23:59:59 CLS Outpatient JANINE PERAZA [facility] RAD SCREENING [id number] 11/10/2016 13:00:00 11/10/2016 23:59:59 CLS Preadmit JANINE PERAZA [facility] RAD M54.5 LOW BACK PAIN [id number] 09/30/2016 13:55:00 09/30/2016 15:00:00 DIS Outpatient KIMMY CHACKO APRN [facility] SLEEP EDS, POOR SLEEP [id number] 09/21/2016 14:20:00 09/21/2016 14:42:00 DIS Outpatient KIMMY CHACKO APRN [facility] SLEEP POOR SLEEP, EDS, PARASOMNIA [id number] 04/07/2016 13:00:00 04/07/2016 13:30:00 DIS Outpatient DEMETRIA CHANG MD [facility] REHAB OA L SHOULDER [id number] 02/10/2016 11:41:00 02/10/2016 23:59:59 CLS Outpatient MIS HARRIS [facility] RAD RT GROIN PAIN [id number] 02/03/2016 10:43:00 02/03/2016 17:36:00 DIS Outpatient MIS HARRIS HOUSE PIPING INSPECTOR [facility] CATH SOB,ABNORMAL EKG, DIAPHORESIS [id number] 02/02/2016 13:06:00 02/02/2016 23:59:59 CLS Outpatient JENN COBIAN FACC, CRISTIANE LAGOS CCDS [facility] CARD SOB,ABNORMAL ECG [id number] 02/02/2016 10:35:00 02/02/2016 12:26:00 DIS Emergency MADIDE COBIAN, DOMINGO Verduzco [facility] ER L ARM TINGLING AND PAIN [id number] 01/28/2016 09:02:00 01/28/2016 23:59:59 CLS Outpatient JANINE PERAZA [facility] RAD SCREENING,LOW BACK PAIN [id number] 12/19/2015 10:36:00 12/19/2015 23:59:59 CLS Outpatient KARMEN JANINE HOUSE PIPING INSPECTOR [facility] LAB [id number] 12/11/2015 10:24:00 12/11/2015 23:59:59 CLS Outpatient KARMEN JANINE JULIA [facility] RAD STATUS POST BARIATRIC SURGERY [id number] 09/15/2015 09:26:00 09/15/2015 23:59:59 CLS Outpatient MIKEY PADGETT MD [facility] LAB FATIGUE [id number] 07/13/2015 14:26:00 07/13/2015 20:03:00 DIS Emergency BRITNEY HALE APRN [facility] ER POST OP/ABD PAIN [id number] 04/23/2015 14:34:00 05/28/2015 10:24:00 DIS Outpatient DEMETRIA CHANG MD [facility] REHAB S/P BICEPS TENOTOMY ROTATOR CUFF RUPTURE LEFT [id number] 03/19/2015 09:10:00 03/19/2015 14:40:00 DIS Outpatient [facility] SHOULDER SLAP ROTATOR CUFF TEAR; SEE NOTES [id number] 03/14/2015 12:16:00 03/14/2015 23:59:59 CLS Outpatient DEMETRIA CHANG MD [facility] PREOP LEFT SHOULDER SLAP ROTATOR CUFF TEARS;GANGLION [id number] 02/21/2015 09:38:00 02/21/2015 23:59:59 CLS Outpatient JEFF CRUM [facility] RAD RTC TEAR [id number] 07/29/2014 11:55:00 07/29/2014 23:59:59 CLS Outpatient TERE ALEJO MD [facility] RAD RT RENAL LESION [id number] 07/25/2014 11:02:00 07/25/2014 23:59:59 CLS Outpatient TERE ALEJO MD [facility] RAD HEMATURIA [id number] 04/02/2014 10:59:00 04/30/2014 08:59:00 DIS Outpatient JANINE PERAZAP [facility] REHAB SCIATICA [id number] 03/14/2014 12:22:00 03/14/2014 23:59:59 CLS Outpatient JACQUELINE COBIAN, DEMETRIA Holley [facility] RAD GLOBUS,SMOKER [id number] 03/11/2014 10:14:00 03/11/2014 23:59:59 CLS Outpatient JANINE PERAZA HOUSE PIPING INSPECTOR [facility] RAD SCREENING [id number] 07/31/2013 12:44:00 09/06/2013 10:33:00 DIS Outpatient JEFF CRUM HOUSE PIPING INSPECTOR [facility] REHAB QUAD WEAKNESS S/P LT TKR [id number] 04/17/2013 12:52:00 04/17/2013 23:59:59 CLS Outpatient CONRADO MCDERMOTT ZONING ADMINISTRATOR [facility] RAD ALLERGIC RHINITIS, NASAL CONGESTION [id number] 01/17/2013 08:58:00 01/17/2013 23:59:59 CLS Outpatient JANINE PERAZAP [facility] RAD SCREENING
[2017-07-11] MEDS ORDERED: proPOfol 200 MG/20 ML (DIPRIVAN) VIAL IV ONE (11:39)
[2017-07-11] MEDS ORDERED: SEVOFLURANE (ULTANE) 15 ML INHAL SOLN ONE ×4 (11:39→14:36)
[2017-07-11] MEDS ORDERED: ONDANSETRON 4 MG/2 ML (SDV) Z0FRAN ONE (11:39)
[2017-07-11] MEDS ORDERED: LIDOCAINE PF 2% 5 ML (XYLOCAINE) VIAL ONE (11:39)
[2017-07-11] MEDS ORDERED: DEXAMETHASONE 10 MG/ML (DECADRON) 1 ML VIAL ONE (11:39)
[2017-07-11] MEDS ORDERED: MIDAZOLAM 2 MG/2 ML (VERSED) VIAL ONE (11:40)
[2017-07-11] MEDS ORDERED: fentaNYL INJECTION 100 MCG/2 ML AMP ONE (11:40)
[2017-07-11] MEDS ORDERED: TRAZ100T92 PO (11:49)
[2017-07-11] MEDS ORDERED: SCOPOLAMINE 1.5 MG (TRANSDERM-SCOP) PATCH TOP ONE (12:00)
[2017-07-11] MEDS ORDERED: FAMOTIDINE 20MG/2ML IV (PEPCID) IV ONE (12:00)
[2017-07-11] MEDS ORDERED: metroNIDAZOLE 500 MG/100 ML IVPB (PRE-MIX) IV ONE (12:00)
[2017-07-11] MEDS ORDERED: LEVOFLOXACIN 500 MG/D5W 100 ML (PRE-MIX) IV ONE (12:00)
[2017-07-11] MEDS ORDERED: ONDANSETRON 4 MG/2 ML (SDV) Z0FRAN IV ONE (12:00)
[2017-07-11 12:05] VITALS: BP 115/73
[2017-07-11] MEDS: LACTATED RINGERS 1,000 ML IV PRN ×2 (12:30→14:25)
[2017-07-11] MEDS ORDERED: BUP/EPI 0.5% 1:200,000 (SENSORCAINE) 30 ML VIAL ONE (13:14)
--- NOTE | 2017-07-11 13:26 | Progress Note-Pre Operative ---
Pre-Operative Progress Note H&P Reviewed The H&P was reviewed, patient examined and no changes noted. Date Seen by Provider: Jul 05, 2017 Time Seen by Provider: 10:35 Date H&P Reviewed: Jul 11, 2017 Time H&P Reviewed: 13:26 Pre-Operative Diagnosis: Gallstones DEBI REGALADO MD Jul 11, 2017 1:26 pm
[2017-07-11] MEDS ORDERED: NEOSTIGMINE 1 MG/ML 5 ML SYRINGE ONE (14:36)
[2017-07-11] MEDS ORDERED: GLYCOPYRROLATE 0.2 MG/ML (ROBINUL) 2 ML VIAL ONE (14:36)
[2017-07-11] MEDS ORDERED: ROCURONIUM 10 MG/ML 5 ML SYRINGE IV ONE (14:36)
[2017-07-11] MEDS ORDERED: morphine INJ 10 MG/ML 1ML (SYR OR VIAL) ONE (14:39)
[2017-07-11] MEDS ORDERED: PHENYLEPHRINE 100 MCG/ML 10 ML (ANESTHESIA) SYR ONE (15:14)
--- NOTE | 2017-07-11 15:25 | Operative Report ---
Operative Report Date of Procedure/Surgery Jul 11, 2017 Surgeon (s) DEBI REGALADO MD [facility] (s): N/A Post-Operative Diagnosis Normal cholangiogram Procedure Performed Robotic-assisted cholecystectomy Intraoperative cholangiogram Description of Procedure Anesthesia Type: General Estimated blood loss (mL): Minimal Specimen(s) collected/removed Gallbladder with stones Description of the Procedure Indication for the procedure: This lady presented with symptomatic gallstones. In addition, her bilirubin was elevated, raising the concern for choledocholithiasis. He was offered prompt cholecystectomy using minimally invasive technique with robotic assistance and intraoperative cholangiogram. Informed consent was obtained after reviewing the operative details and complications of wound infection and bile leak. Description of the procedure: She was placed supine on the operative table and general anesthesia induced. Levaquin and Flagyl were administered intravenously as prophylaxis against wound infection. Sequential compression devices were placed around her legs, to minimize the risk of venous thrombosis. Abdomen was prepared and draped in the usual sterile manner. Due to previous upper abdominal surgery following leak from the gastric sleeve operation, I initiated pneumoperitoneum using a Veress needle introduced via the left subcostal margin. Intra-abdominal pressure was maintained at 15 mmHg, using carbon dioxide insufflation. A 5 mm trocar was placed and anatomy visualized using the conventional laparoscope. Omentum was adherent to the undersurface of the midline scar. Under direct view, I placed an 8 mm trocar over the left side of the abdomen and took down the adhesions by blunt dissection. Subsequently, I was able to place it 12 mm trocar over the subumbilical region and another 8 mm trocar over the right side of the abdomen. We, then, switch to the robotic system, which was docked in place. Gallbladder was rather elongated, containing multiple stones. The fundus was retracted cephalad and the infundibulum grasped with Cadiere forceps.. Peritoneum overlying Calot's triangle was incised using hook cautery, delineating the cystic duct and artery. Cholangiogram was obtained using a taut catheter. It revealed normal anatomy with no filling defects in the common bile duct. The contrast flowed freely into the duodenum. The catheter was then removed and the cystic duct controlled using locking clips. Cystic artery was managed in a similar fashion. Cholecystectomy was then completed using hook cautery. Subhepatic space was irrigated with saline and the gallbladder placed in an Endo Catch bag, being removed via the subumbilical trocar site. The fascia over this incision was closed using #1 Vicryl using the Skip Robert device under direct laparoscopic view. Skin incisions were closed using 4-0 Vicryl, in a subcuticular fashion. 0.5 percent Marcaine epinephrine was infiltrated along the incisions, both preemptively and at the conclusion of the operation. She tolerated the procedure well, was extubated in the operating room and taken to the recovery room in a stable condition. Findings of the Procedure See op report Allergies and Home Medications Allergies Coded Allergies: cephalexin (Verified Allergy, Unknown, hives, 07/11/17) sulfamethoxazole (Verified Allergy, Unknown, 03/14/15) trimethoprim (Verified Allergy, Unknown, 03/14/15) Home Medications Acyclovir 400 Mg Tablet, 400 MG PO Q8H PRN for COLD SORES, (Reported) Albuterol Sulfate 8.5 Gm Hfa.aer.ad, 2 PUFF IH Q6H PRN for WHEEZING, (Reported) Aspirin 81 Mg Tablet.dr, 81 MG PO DAILY, (Reported) Budesonide/Formoterol Fumarate 10.2 Gm Hfa.aer.ad, 2 PUFF IH BID PRN for SHORTNESS OF BREATH, (Reported) Calcium Carbonate/Vitamin D3 1 Each Tablet, 2 TAB PO DAILY, (Reported) Cholecalciferol (Vitamin D3) 1,000 Unit Capsule, 1,000 UNIT PO DAILY, (Reported) Cyanocobalamin 1,000 Mcg/Ml Inj, 1,000 MCG IN MONTHLY, (Reported) Epinephrine 0.3 Mg/0.3 Ml Auto.injct, 0.3 MG IJ UD PRN for ALLERGIC REACTION, ( Reported) Fluticasone Propionate 16 Gm [place].susp, 2 SPRAYS NSEACH BID PRN for ALLERGIES, (Reported) Hydrocodone/Acetaminophen 1 Each Tablet, 1 TAB PO DAILY PRN for PAIN, (Reported) Meloxicam 7.5 Mg Tablet, 7.5 MG PO BID PRN for PAIN, (Reported) Montelukast Sodium 10 Mg Tablet, 10 MG PO HS, (Reported) Multivitamin 1 Each Tablet, 1 TAB PO DAILY, (Reported) Omeprazole 20 Mg Capsule.dr, 20 MG PO BID, (Reported) Pravastatin Sodium 40 Mg Tablet, 40 MG PO DAILY Prescribed by: CRISTIANE BARAJAS on 02/03/16 3526 Sumatriptan Succinate 100 Mg Tablet, 100 MG PO UD PRN for MIGRAINE, (Reported) 100 MG DAILY NEEDED FOR MIGRAINE; MAY REPEAT ONCE IN 2 HOURS IF NEEDED. Trazodone HCl 100 Mg Tablet, 100 MG PO HS, (Reported) Patient Home Medication List Home Medication List Reviewed: Yes DEBI REGALADO MD Jul 11, 2017 3:25 pm
[2017-07-11] MEDS ORDERED: ACHD5005 PO (15:27)
--- NOTE | 2017-07-11 15:27 | Discharge Inst-Simple/Standard ---
Discharge Inst-Standard Discharge Medications New, Converted or Re-Newed RX: RX on Chart Patient Instructions/Follow Up Plan of Care/Instructions/FU: Band-Aids off in 48 hours. Incentive spirometry. Follow-up in 3 weeks Activity as Tolerated: Yes Discharge Diet: No Restrictions DEBI REGALADO MD Jul 11, 2017 3:27 pm
--- NOTE | 2017-07-11 15:39 | Diagnostic Imaging Report ---
EXAMINATION: Fluoroscopy. INDICATION: Abdominal pain. FINDINGS: Fluoroscopic assistance was provided for Dr. Chapa during his laparoscopic cholecystectomy procedure. 23 seconds of fluoroscopy time was utilized. A single spot film of the right upper quadrant was obtained. There are laparoscopic devices in place. There has been opacification of the common bile duct via a cystic duct catheter. The common bile duct is not dilated and there is no defect within the duct to suggest a retained calculus. Contrast is seen extending into the small bowel. IMPRESSION: Fluoroscopic assistance was provided for Dr. Chapa during his laparoscopic cholecystectomy procedure. Dictated by: Dictated on workstation # [id number]
[2017-07-11] MEDS ORDERED: ONDANSETRON 4 MG/2 ML (SDV) Z0FRAN IVP PRN (15:45)
[2017-07-11] MEDS: morphine INJ 10 MG/ML 1ML (SYR OR VIAL) IVP PRN ×2 (15:45→15:53)
--- NOTE | 2017-07-11 16:23 | Anesthesia-General Post-Op ---
General Patient Condition Mental Status/LOC: Same as Preop Cardiovascular: Satisfactory Nausea/Vomiting: Absent Respiratory: Satisfactory Pain: Controlled Complications: Absent Post Op Complications Complications None Follow Up Care/Instructions Patient Instructions None needed. Anesthesia/Patient Condition Patient Condition Patient is doing well, no complaints, stable vital signs, no apparent adverse anesthesia problems. No complications reported per nursing. CARMEN AUSTIN CRNA Jul 11, 2017 16:23
[2017-07-11 16:25] VITALS: BP 124/74
[2017-07-11] MEDS ORDERED: HYDROcodone/APAP 5 MG/325 MG (LORTAB) TAB PO ONE (16:45)
[2017-07-11 16:55] VITALS: BP 125/69
[2017-07-11 17:25] VITALS: BP 128/73
[2017-07-11 18:05] VITALS: BP 128/73
[2017-07-11 18:30] VITALS: BP 128/73
== END 2017-07-11 18:30 | disposition home or self-care (01) ==
LOC: SDC 11:17
PROVIDERS: ATTEND Surgery
DX: K80.20 Calculus of gallbladder without cholecystitis without obstruction (principal); Z11.2 Encounter for screening for other bacterial diseases; Z88.1 Allergy status to other antibiotic agents; Z88.8 Allergy status to other drugs, medicaments and biological substances; J45.909 Unspecified asthma, uncomplicated; G62.9 Polyneuropathy, unspecified; K21.9 Gastro-esophageal reflux disease without esophagitis; Z79.899 Other long term (current) drug therapy
CPT/HCPCS: 87081; 94664

== ENCOUNTER 2017-07-26 10:02 | Emergency (ER) | payer MEDICAID ==
[~2017-07-26] VITALS: Ht 160 cm; Wt 68.0 kg
[~2017-07-26 10:02] MED LIST changes: +ACHD5005 PO; +TRAZ100T92 PO
[2017-07-26] MEDS ORDERED: fentaNYL INJECTION 100 MCG/2 ML AMP IVP STA (10:12)
[2017-07-26] MEDS ORDERED: LACTATED RINGERS 1,000 ML IV ONE (10:12)
[2017-07-26 10:32] LABS: BASOPHILS % (AUTO) 0 % (0-10); EOSINOPHILS % (AUTO) 0 % (0-10); HEMATOCRIT 39 % (35-52); HEMOGLOBIN 13.3 G/DL (11.5-16.0); LYMPHOCYTES # (AUTO) 0.7 X 10^3 (1.0-4.0); LYMPHOCYTES % (AUTO) 6 % (12-44); MEAN CORPUSCULAR HEMOGLOBIN 30 PG (25-34); MEAN CORPUSCULAR HGB CONC 34 G/DL (32-36); MEAN CORPUSCULAR VOLUME 87 FL (80-99); MEAN PLATELET VOLUME 11.3 FL (7.4-10.4); MONOCYTES # (AUTO) 0.5 X 10^3 (0.0-1.0); MONOCYTES % (AUTO) 3 % (0-12); NEUTROPHILS # (AUTO) 12.1 X 10^3 (1.8-7.8); NEUTROPHILS % (AUTO) 91 % (42-75); PLATELET COUNT 257 10^3/uL (130-400); RED BLOOD COUNT 4.49 10^6/uL (4.35-5.85); RED CELL DISTRIBUTION WIDTH 12.9 % (10.0-14.5); WHITE BLOOD COUNT 13.3 10^3/uL (4.3-11.0)
--- NOTE | 2017-07-26 10:38 | ED Abdominal Pain ---
General Chief Complaint: Abdominal/GI Problems Stated Complaint: N/V/D Nursing Triage Note: PT ARRIV[facility] VIA EMS FROM [facility]. C/O N/V/D SINCE YESTERDAY. R SIDED ABDOMINAL PAIN RATED 8/10. PAT HAS SALINE LOCK IN LEFT WRIST #20. PT REFUSED ZOFRAN FOR NASUEA AT THIS TIME. PT HAS HAD RECENT GALL BLADDER SURGERY 07/08/17. HX OF GASTRIC SLEEVE. Sepsis Screen: No Definite Risk Source of Information: Patient, EMS, RN/MD Exam Limitations: No Limitations History of Present Illness Date Seen by Provider: Jul 26, 2017 Time Seen by Provider: 10:05 Initial Comments Here with report of nausea, vomiting and diarrhea since yesterday. States that she's thrown up buckets full but then states that she has been throwing up multiple times small amounts of greenish fluid. Did have a cholecystectomy via robot-assisted laparoscopic procedure on 07/08/[address] Regalado. She had been doing okay until yesterday. Also has history of gastric sleeve. Reports that she had rupture after gastric sleeve in 2016 and this feels Like that. Complains of pain to right side of the abdomen and reports that that is cramping and comes and goes. States that it's 5 out of 10 constant and goes up to 10 out of 10 occasionally. Denies vomiting or nausea currently. Was seen at outpatient clinic. Transported here by EMS per patient request. No pre- arrival treatment other than IV as patient declined pain and nausea medicine for ER transport. Timing/Duration: 12-24 Hours Severity/Quality: Moderate, Severe, Cramping Location: RUQ, RLQ Radiation: No Radiation Activities at Onset: None Modifying Factors: Worsens With Eating Associated Symptoms: No Back Pain, No Chest Pain, No Diaphoresis, No Fever/ Chills, Nausea/Vomiting, No Shortness of Air, No Weakness Allergies and Home Medications Allergies Coded Allergies: cephalexin (Verified Allergy, Unknown, hives, 07/11/17) sulfamethoxazole (Verified Allergy, Unknown, 03/14/15) trimethoprim (Verified Allergy, Unknown, 03/14/15) Home Medications Acyclovir 400 Mg Tablet, 400 MG PO Q8H PRN for COLD SORES, (Reported) Albuterol Sulfate 8.5 Gm Hfa.aer.ad, 2 PUFF IH Q6H PRN for WHEEZING, (Reported) Aspirin 81 Mg Tablet.dr, 81 MG PO DAILY, (Reported) Budesonide/Formoterol Fumarate 10.2 Gm Hfa.aer.ad, 2 PUFF IH BID PRN for SHORTNESS OF BREATH, (Reported) Calcium Carbonate/Vitamin D3 1 Each Tablet, 2 TAB PO DAILY, (Reported) Cholecalciferol (Vitamin D3) 1,000 Unit Capsule, 1,000 UNIT PO DAILY, (Reported) Cyanocobalamin 1,000 Mcg/Ml Inj, 1,000 MCG IN MONTHLY, (Reported) Epinephrine 0.3 Mg/0.3 Ml Auto.injct, 0.3 MG IJ UD PRN for ALLERGIC REACTION, ( Reported) Fluticasone Propionate 16 Gm [place].susp, 2 SPRAYS NSEACH BID PRN for ALLERGIES, (Reported) Hydrocodone Bit/Acetaminophen 1 Tab Tab, 1-2 TAB PO 4-6HR PRN for PAIN Prescribed by: DEBI REGALADO on 07/11/17 1527 Hydrocodone/Acetaminophen 1 Each Tablet, 1 TAB PO DAILY PRN for PAIN, (Reported) Meloxicam 7.5 Mg Tablet, 7.5 MG PO BID PRN for PAIN, (Reported) Montelukast Sodium 10 Mg Tablet, 10 MG PO HS, (Reported) Multivitamin 1 Each Tablet, 1 TAB PO DAILY, (Reported) Omeprazole 20 Mg Capsule.dr, 20 MG PO BID, (Reported) Ondansetron 4 Mg Tab.rapdis, 4 MG PO Q6H PRN for NAUSEA/VOMITING Prescribed by: GAURAV HORAN on 07/26/17 1313 Pravastatin Sodium 40 Mg Tablet, 40 MG PO DAILY Prescribed by: CRISTIANE BARAJAS on 02/03/16 1446 Sumatriptan Succinate 100 Mg Tablet, 100 MG PO UD PRN for MIGRAINE, (Reported) 100 MG DAILY NEEDED FOR MIGRAINE; MAY REPEAT ONCE IN 2 HOURS IF NEEDED. Trazodone HCl 100 Mg Tablet, 100 MG PO HS, (Reported) Patient Home Medication List Home Medication List Reviewed: Yes Review of Systems Constitutional: see HPI, No chills, No fever EENTM: No Symptoms Reported Respiratory: No Symptoms Reported Cardiovascular: No Symptoms Reported Gastrointestinal: See HPI, Abdominal Pain, Diarrhea, Vomiting Genitourinary: No Symptoms Reported Musculoskeletal: no symptoms reported Skin: no symptoms reported All Other Systems Reviewed Negative Unless Noted: Yes Past Fxvcvxi-Hydjgp-Rwpgrd Hx Patient Social History Alcohol Use: Denies Use Recreational Drug Use: No Smoking Status: Never a Smoker Former Smoker, Quit: May 05, 2015 Recent Foreign Travel: No Contact w/Someone Who Travel: No Recent Infectious Disease Expo: No Recent Hopitalizations: No Immunizations Up To Date Date of Influenza Vaccine: Feb 28, 2015 Seasonal Allergies Seasonal Allergies: Yes (receives allergy desensitization therapy) Surgeries History of Surgeries: Yes Surgeries: Abdominal, Bladder Surgery, 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, Joint Replacement, Orthopedic, Tubal Ligation Respiratory History of Respiratory Disorde: Yes Respiratory Disorders: Asthma, COPD Cardiovascular History of Cardiac Disorders: Yes Cardiac Disorders: High Cholesterol, Hypotension Neurological History of Neurological Disord: Yes Neurological Disorders: Headaches /Migraines Reproductive System 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 Gastrointestinal History of Gastrointestinal Di: Yes Gastrointestinal Disorders: Diverticulosis Musculoskeletal History of Musculoskeletal Dis: Yes Musculoskeletal Disorders: Arthritis Endocrine History of Endocrine Disorders: No HEENT History of HEENT Disorders: No Cancer History of Cancer: No Psychosocial Behavioral Health Disorders: Depression Integumentary History of Skin or Integumenta: Yes Skin/Integumentary Disorders: Eczema Reviewed Nursing Assessment Reviewed/Agree w Nursing PMH: Yes Family Medical History Significant Family History: No Pertinent Family Hx Physical Exam Vital Signs VS - Last 72 Hours, by Label 07/26/17 07/26/17 10:03 10:59 Temp 97.6 Pulse 81 Resp 16 B/P (MAP) 125/87 (100) Pulse Ox 99 88 O2 Delivery Room Air Nasal Cannula O2 Flow Rate 2.00 Capillary Refill : Less Than 3 Seconds General Appearance: WD/WN, no apparent distress HEENT: PERRL/EOMI, pharynx normal Neck: full range of motion, supple Respiratory: lungs clear, normal breath sounds Cardiovascular: regular rate, rhythm, no murmur Peripheral Pulses: 2+ Dorsalis Pedis (R), 2+ Left Dors-Pedis (L), 2+ Radial Pulses (R), 2+ Radial Pulses (L) Gastrointestinal: normal bowel sounds, non tender, soft, No distended, No guarding, No rebound Extremities: non-tender, normal inspection Back: normal inspection, no CVA tenderness, no vertebral tenderness Neurologic/Psychiatric: alert, oriented x 3 Skin: normal color, warm/dry Progress/Results/Core Measures Results/Orders Lab Results Laboratory Tests Test 07/26/17 10:00 07/26/17 10:27 07/26/17 10:28 Range/Units White Blood Count 13.3 H 4.3-11.0 10^3/uL Red Blood Count 4.49 4.35-5.85 10^6/uL Hemoglobin 13.3 11.5-16.0 G/DL Hematocrit 39 35-52 % Mean Corpuscular Volume 87 80-99 FL Mean Corpuscular Hemoglobin 30 25-34 PG Mean Corpuscular Hemoglobin Concent 34 32-36 G/DL Red Cell Distribution Width 12.9 10.0-14.5 % Platelet Count 257 130-400 10^3/uL Mean Platelet Volume 11.3 H 7.4-10.4 FL Neutrophils (%) (Auto) 91 H 42-75 % Lymphocytes (%) (Auto) 6 L 12-44 % Monocytes (%) (Auto) 3 0-12 % Eosinophils (%) (Auto) 0 0-10 % Basophils (%) (Auto) 0 0-10 % Neutrophils # (Auto) 12.1 H 1.8-7.8 X 10^3 Lymphocytes # (Auto) 0.7 L 1.0-4.0 X 10^3 Monocytes # (Auto) 0.5 0.0-1.0 X 10^3 Eosinophils # (Auto) 0.0 0.0-0.3 10^3/uL Basophils # (Auto) 0.0 0.0-0.1 10^3/uL Neutrophils % (Manual) 93 % Lymphocytes % (Manual) 3 % Monocytes % (Manual) 4 % Eosinophils % (Manual) 0 % Basophils % (Manual) 0 % Band Neutrophils 0 % Blood Morphology Comment NORMAL Urine Color YELLOW Urine Clarity CLEAR Urine pH 9 5-9 Urine Specific [place] 1.015 L 1.016-1.022 Urine Protein 1+ H NEGATIVE Urine Glucose (UA) NEGATIVE NEGATIVE Urine Ketones 4+ H NEGATIVE Urine Nitrite NEGATIVE NEGATIVE Urine Bilirubin 1+ H NEGATIVE Urine Urobilinogen 1 NORMAL MG/DL Urine Leukocyte Esterase 1+ H NEGATIVE Urine RBC (Auto) NEGATIVE NEGATIVE Urine RBC 0-2 /HPF Urine WBC 2-5 /HPF Urine Squamous Epithelial Cells 2-5 /HPF Urine Crystals NONE /LPF Urine Bacteria FEW H /HPF Urine Casts NONE /LPF Urine Mucus SMALL H /LPF Urine Culture Indicated NO Sodium Level 137 135-145 MMOL/L Potassium Level 4.6 3.6-5.0 MMOL/L Chloride Level 107 98-107 MMOL/L Carbon Dioxide Level 21 21-32 MMOL/L Anion Gap 9 5-14 MMOL/L Blood Urea Nitrogen 19 H 7-18 MG/DL Creatinine 0.68 0.60-1.30 MG/DL Estimat Glomerular Filtration Rate > 60 BUN/Creatinine Ratio 28 Glucose Level 98 70-105 MG/DL Calcium Level 9.4 8.5-10.1 MG/DL Magnesium Level 2.2 1.8-2.4 MG/DL Total Bilirubin 1.8 H 0.1-1.0 MG/DL Aspartate Amino Transf (AST/SGOT) 23 5-34 U/L Alanine Aminotransferase (ALT/SGPT) 12 0-55 U/L Alkaline Phosphatase 75 40-136 U/L Total Protein 7.2 6.4-8.2 GM/DL Albumin 4.1 3.2-4.5 GM/DL My Orders Orders - GAURAV HORAN MD Cbc With Automated Diff (07/26/17 10:12) Comprehensive Metabolic Panel (07/26/17 10:12) Magnesium (07/26/17 10:12) Ua Culture If Indicated (07/26/17 10:12) Saline Lock/Iv-Start (07/26/17 10:12) Lactated Ringers (Lr 1000 Ml Iv Solution (07/26/17 10:12) Fentanyl Injection (Sublimaze Injection (07/26/17 10:12) Manual Differential (07/26/17 10:00) Ondansetron Injection (Zofran Injectio (07/26/17 10:45) Ct Abdomen/Pelvis W (07/26/17 11:02) Iohexol Injection (Omnipaque 350 Mg/Ml 1 (07/26/17 11:15) Ns (Ivpb) (Sodium Chloride 0.9%) (07/26/17 11:15) Pharmacy Communication (Pharmacy Communi (07/26/17 11:07) O2 (07/26/17 11:11) Ns Iv 1000 Ml (Sodium Chloride 0.9%) (07/26/17 12:47) Medications Given in ED Current Medications Medications Dose Ordered Sig/Etelvina Route Start Time Stop Time Status Last Admin Dose Admin Iohexol 100 ml ONCE ONCE IV 07/26/17 11:15 07/26/17 11:16 DC 07/26/17 11:51 100 ML Lactated Ringer's 1,000 ml @ 0 mls/hr Q0M ONCE IV 07/26/17 10:12 07/26/17 10:14 DC 07/26/17 10:33 1,000 MLS/HR Ondansetron HCl 4 mg ONCE ONCE IVP 07/26/17 10:45 07/26/17 10:46 DC 07/26/17 10:52 4 MG Sodium Chloride 250 ml ONCE ONCE IV 07/26/17 11:15 07/26/17 11:16 DC 07/26/17 11:51 80 ML Sodium Chloride 1,000 ml @ 0 mls/hr Q0M ONCE IV 07/26/17 12:47 07/26/17 12:48 DC 07/26/17 13:09 1,000 MLS/HR Vital Signs/I&O Vital Sign - Last 12Hours 07/26/17 07/26/17 10:03 10:59 Temp 97.6 Pulse 81 Resp 16 B/P (MAP) 125/87 (100) Pulse Ox 99 88 O2 Delivery Room Air Nasal Cannula O2 Flow Rate 2.00 Blood Pressure Mean: 100 Progress Note : Progress Note Seen and evaluated. IV established prior to arrival. Labs, LR 1 L bolus and fentanyl 75 g IV ordered. Patient declined nausea medicine. 1035: Patient now requesting nausea medicine. Zofran 4 mg IV ordered. 1245: CT complete. Repeat normal saline 1 L bolus due to 4+ ketones in the urine and we will attempt by mouth challenge now. If Tolerates, discharged home. Patient agrees with plan. 1310: I did discuss the case with Dr. Regalado and he agrees with plan. 1400: Tolerated by mouth without vomiting. Discharged home with return precautions. Patient and family verbalize understanding instructions and agreement with plan. Diagnostic Imaging Diagonstic Imaging: CT Plain Films/CT/US/NM/MRI: abdomen, pelvis Comments VIA [facility]. [place], [place] NAME: BRADY LIMON MED REC#: [id number] PT STATUS: REG ER : 1960 PHYSICIAN: GAURAV HORAN MD ADMIT DATE: 07/26/17/ER Draft Date of Exam:07/26/17 CT ABDOMEN/PELVIS W INDICATION: Nausea, vomiting and diarrhea, history of gastric sleeve, CT abdomen and pelvis obtained with IV contrast bolus. Comparison is made to 07/13/2015. The visualized portions of the lung bases are clear. There is no pleural fluid collection. There is no evidence of free intraperitoneal air. The liver shows no focal lesions. Gallbladder is absent. Spleen, adrenals, and pancreas appear normal. The kidneys bilaterally are unremarkable, except for a small benign cyst in the right kidney anteriorly. There appears to be a small hiatal hernia. There are postop changes in the stomach compatible with gastric sleeve procedure. There is no retroperitoneal mass or adenopathy. There is no ascites. There are some moderately prominent small bowel loops in the left upper quadrant which are fluid-filled, with normal caliber distal small bowel loops. The colon shows no significant distention. There is no pelvic soft tissue mass or adenopathy. There are uncomplicated sigmoid diverticuli. IMPRESSION: Small hiatal hernia. Postop changes in the stomach compatible with gastric sleeve procedure. There are some mild to moderately prominent loops of small bowel in the upper abdomen containing fluid, which may represent mild enteritis. There is decompression of distal small bowel, partial obstruction or early obstruction is not entirely excluded. If there is clinical suspicion of obstruction, consider a small bowel study. Dictated on workstation # [id number] Dict: 07/26/17 1219 Trans: 07/26/17 1232 [facility] [id number] Interpreted by: CHATO JAMES MD Electronically signed by: Departure Impression Impression: Primary Impression: Vomiting Qualified Codes: R11.2 - Nausea with vomiting, unspecified Additional Impression: Diarrhea Qualified Codes: R19.7 - Diarrhea, unspecified Disposition: 01 HOME, SELF-CARE Condition: Stable Departure-Patient Inst. Decision time for Depature: 13:01 Referrals: TED LAUREN DO (PCP) Primary Care Physician JANINE PERAZA (Family) Primary Care Physician DEBI REGALADO MD Patient Instructions: Diarrhea in Adolescents and Adults, Dehydration, Adult ( DC) Add. Discharge Instructions: All discharge instructions reviewed with patient and/or family. Voiced understanding. Clear liquid diet for the next 24 hours and then advance as tolerated. Take small sips frequently. Follow-up with your Dr. in one to 2 days for recheck. Return for worse pain, fever, vomiting, weakness, breathing problems or other concerns as needed. Scripts Ondansetron (Ondansetron Odt) 4 Mg Tab.rapdis 4 MG PO Q6H Y for NAUSEA/VOMITING, #8 TAB 0 Refills Prov: GAURAV HORAN MD 07/26/17 Copy Copies To 1: DEBI REGALADO MD, TIMOTHY D MD Jul 26, 2017 10:38
[2017-07-26 10:42] LABS: CLARITY,URINE CLEAR; COLOR,URINE YELLOW; GLUCOSE, URINE (UA) NEGATIVE (NEGATIVE); KETONES,URINE 4+ (NEGATIVE); LEUKOCYTE ESTERASE ,URINE 1+ (NEGATIVE); NITRITE,URINE NEGATIVE (NEGATIVE); PH,URINE 9 (5-9); PROTEIN,URINE 1+ (NEGATIVE); UROBILINOGEN,URINE 1 MG/DL (NORMAL)
[2017-07-26] MEDS ORDERED: ONDANSETRON 4 MG/2 ML (SDV) Z0FRAN IVP ONE (10:45)
[2017-07-26 10:53] LABS: BACTERIA,URINE FEW /HPF; BILIRUBIN,URINE 1+ (NEGATIVE); RBC,URINE 0-2 /HPF
[2017-07-26 10:58] LABS: ALANINE AMINOTRANSFERASE 12 U/L (0-55); ALBUMIN 4.1 GM/DL (3.2-4.5); ALKALINE PHOSPHATASE 75 U/L (40-136); BILIRUBIN,TOTAL 1.8 MG/DL (0.1-1.0); BUN/CREATININE RATIO 28; CALCIUM 9.4 MG/DL (8.5-10.1); CARBON DIOXIDE 21 MMOL/L (21-32); CHLORIDE 107 MMOL/L (98-107); CREATININE SERUM 0.68 MG/DL (0.60-1.30); GFR ESTIMATED > 60; GLUCOSE 98 MG/DL (70-105); MAGNESIUM 2.2 MG/DL (1.8-2.4); SODIUM 137 MMOL/L (135-145); TOTAL PROTEIN 7.2 GM/DL (6.4-8.2)
[2017-07-26 11:00] LABS: BAND NEUTROPHILS 0 %; BASOPHILS % (MANUAL) 0 %; EOSINOPHILS % (MANUAL) 0 %; LYMPHOCYTES % (MANUAL) 3 %; MONOCYTES % (MANUAL) 4 %; NEUTROPHILS % (MANUAL) 93 %; RBC MORPH NORMAL
[2017-07-26 11:00] LABS: POTASSIUM 4.6 MMOL/L (3.6-5.0)
[2017-07-26] MEDS ORDERED: IOHEXOL 350 MG/ML 100 ML (OMNIPAQUE 350) VIAL IV ONE (11:15)
[2017-07-26] MEDS ORDERED: NS 250 ML (IVPB) BAG IV ONE (11:15)
--- NOTE | 2017-07-26 12:33 | Diagnostic Imaging Report ---
INDICATION: Nausea, vomiting and diarrhea, history of gastric sleeve, CT abdomen and pelvis obtained with IV contrast bolus. Comparison is made to 07/13/2015. The visualized portions of the lung bases are clear. There is no pleural fluid collection. There is no evidence of free intraperitoneal air. The liver shows no focal lesions. Gallbladder is absent. Spleen, adrenals, and pancreas appear normal. The kidneys bilaterally are unremarkable, except for a small benign cyst in the right kidney anteriorly. There appears to be a small hiatal hernia. There are postop changes in the stomach compatible with gastric sleeve procedure. There is no retroperitoneal mass or adenopathy. There is no ascites. There are some moderately prominent small bowel loops in the left upper quadrant which are fluid-filled, with normal caliber distal small bowel loops. The colon shows no significant distention. There is no pelvic soft tissue mass or adenopathy. There are uncomplicated sigmoid diverticuli. IMPRESSION: Small hiatal hernia. Postop changes in the stomach compatible with gastric sleeve procedure. There are some mild to moderately prominent loops of small bowel in the upper abdomen containing fluid, which may represent mild enteritis. There is decompression of distal small bowel, partial obstruction or early obstruction is not entirely excluded. If there is clinical suspicion of obstruction, consider a small bowel study. Dictated by: Dictated on workstation # [id number]
[2017-07-26] MEDS ORDERED: NS IV 1000 ML 1,000 ML IV ONE (12:47)
[2017-07-26] MEDS ORDERED: ONDA4TAB11 PO (13:13)
[2017-07-26 14:16] VITALS: BP 129/89
== END 2017-07-26 14:16 | disposition home or self-care (01) ==
LOC: EDUNIT# 10:02 → ER 10:03
DX: R11.2 Nausea with vomiting, unspecified (principal); R19.7 Diarrhea, unspecified; F32.9 Major depressive disorder, single episode, unspecified; G43.909 Migraine, unspecified, not intractable, without status migrainosus; E78.00 Pure hypercholesterolemia, unspecified; J44.9 Chronic obstructive pulmonary disease, unspecified; Z87.891 Personal history of nicotine dependence; Z98.51 Tubal ligation status; Z87.39 Personal history of other diseases of the musculoskeletal system and connective tissue; Z90.710 Acquired absence of both cervix and uterus; Z90.49 Acquired absence of other specified parts of digestive tract; Z98.84 Bariatric surgery status; Z79.82 Long term (current) use of aspirin; Z88.2 Allergy status to sulfonamides; Z88.1 Allergy status to other antibiotic agents
CPT/HCPCS: 36415; 74177; 80053; 81000; 83735; 85007; 85025; 85027; 96361; 96374; 96375

== ENCOUNTER → 2018-05-30 | Outpatient (CLI) | payer MEDICAID ==
[~2018-05-30] MED LIST changes: +METR-145 PO; -METR500T21 PO; +ONDA4TAB11 PO; -OXYC-197 PO; +OXYC1TAB87 PO; +TRAZ-190 PO; -TRAZ100T92 PO
--- NOTE | 2018-05-30 19:06 | Diagnostic Imaging Report ---
EXAMINATION: Digital mammogram bilateral screening with 3D tomosynthesis. The current study was also evaluated with a Computer Aided Detection (CAD) system. INDICATION: Screening. This study was compared to the prior exams of 01/26/2017, 01/28/2016, and 03/11/2014. At this time, there are no current complaints. FINDINGS: There are scattered fibroglandular densities in both breasts which could obscure a lesion. When compared to the prior study, there has been no significant change. There is no primary or secondary sign of malignancy noted. The 3D tomographic views also fail to show any sign of malignancy. IMPRESSION: There is no evidence of malignancy. ACR BI-RADS Category 1: Negative. Result letter will be mailed to the patient. Note: At least 10% of breast cancer is not imaged by mammography. Dictated by: Dictated on workstation # [id number]
== END ==
LOC: RAD 10:37
PROVIDERS: ATTEND Nurse Practitioner Community Health
DX: Z12.31 Encounter for screening mammogram for malignant neoplasm of breast (principal)
CPT/HCPCS: 77067

== ENCOUNTER 2018-09-18 11:29 | Outpatient (RCR) | payer MEDICAID | END 2018-10-09 15:08 | disposition home or self-care (01) | PROVIDERS: ATTEND Orthopaedic Surgery | DX: Z47.1 Aftercare following joint replacement surgery (principal); Z96.652 Presence of left artificial knee joint ==

== ENCOUNTER → 2019-05-31 | Outpatient (CLI) | payer MEDICAID ==
[~2019-05-31] MED LIST changes: -IBUP-2055 PO; +IBUP-2473 PO; +OMEP-280 PO; -OMEP20CA12 PO
--- NOTE | 2019-05-31 20:28 | Diagnostic Imaging Report ---
INDICATION: Routine screening. Comparison is made with prior mammograms from 05/30/2018 and 01/26/2017. 2-D and 3-D bilateral screening mammography was performed. The current study was also evaluated with a Computer Aided Detection (CAD) system. 3-D tomosynthesis was also performed and reviewed. FINDINGS: Scattered fibroglandular densities are identified bilaterally. Circumscribed nodule in the outer right breast is stable. No mass or malignant-appearing microcalcifications are seen. The axillae are unremarkable. IMPRESSION: No mammographic features suspicious for malignancy are identified. ACR BI-RADS Category 2: Benign findings. Result letter will be mailed to the patient. Note: At least 10% of breast cancer is not imaged by mammography. Dictated by: Dictated on workstation # [id number]
== END ==
LOC: RAD 09:56
PROVIDERS: ATTEND Nurse Practitioner Community Health
DX: Z12.31 Encounter for screening mammogram for malignant neoplasm of breast (principal)
CPT/HCPCS: 77067

== ENCOUNTER → 2019-06-12 | Outpatient (CLI) | payer MEDICAID ==
--- NOTE | 2019-06-12 14:11 | Diagnostic Imaging Report ---
PROCEDURE: MRI lumbar spine. TECHNIQUE: Multiplanar, multisequence MRI of the lumbar spine was performed without contrast. INDICATION: Chronic low back pain. FINDINGS: There appears to be very slight anterolisthesis of L4 on L5. Alignment is otherwise normal. The vertebral body heights are well-maintained. There are no marrow signal intensity abnormalities. Conus medullaris is seen at L1 and is normal in appearance. At T12-L1, the disc is normal in height, signal intensity and morphology. There is no spinal or neural foraminal encroachment. At L1-L2, slight loss of disc height and signal intensity as well as some facet disease and thickening of the ligamentum flavum. There is very minimal central spinal stenosis and minimal neural foraminal encroachment. At L2-L3, there is some loss of disc height and signal intensity with mild annular bulging. There is facet disease and thickening of the ligamentum flavum. There is mild to moderate spinal stenosis with mild neural foraminal encroachment. At L3-L4, there is facet disease and thickening of the ligamentum flavum. Again with some mild to moderate spinal stenosis and minimal neural foraminal encroachment. At L4-L5, there is some annular bulging, facet disease and thickening of the ligamentum flavum. There is moderate spinal stenosis with slight encroachment upon the lateral recess bilaterally and mild bilateral neural foraminal encroachment. At L5-S1, there is some facet disease. There is some annular bulging laterally on the left contributing to some left neural foraminal encroachment. There is no significant neural foraminal encroachment on the right. The aorta is nonaneurysmal. Kidneys are grossly unremarkable. IMPRESSION: Mild diffuse lumbar spondylosis and multilevel degenerative disc disease as described. Dictated by: Dictated on workstation # [id number]
== END ==
LOC: RAD 12:37
PROVIDERS: ATTEND Nurse Practitioner Community Health
DX: M47.816 Spondylosis without myelopathy or radiculopathy, lumbar region (principal); M51.36 Other intervertebral disc degeneration, lumbar region; G89.29 Other chronic pain; R20.0 Anesthesia of skin
CPT/HCPCS: 72148

== ENCOUNTER 2021-04-15 14:48 | Outpatient (RCR) | payer MEDICAID ==
[~2021-04-15 14:48] MED LIST changes: +ACHYD1T PO; -ACYC400T PO; +ACYC400T21 PO; +ASPI-1238 PO; -ASPI-983 PO; -HYDR-3820 PO; +MONT-40 PO; -MONT10TA24 PO; +MULT-567 PO; -MULT1TAB69 PO; -OMEP-280 PO; +OMEP20CA18 PO; -TRAZ-190 PO; +TRAZ-227 PO
== END 2021-04-26 | disposition home or self-care (01) ==
PROVIDERS: ATTEND Orthopaedic Surgery
DX: Z98.1 Arthrodesis status (principal)

== ENCOUNTER 2021-05-27 08:02 | Outpatient (RCR) | payer MEDICAID | END 2021-06-01 | disposition home or self-care (01) | PROVIDERS: ATTEND Orthopaedic Surgery | DX: R53.1 Weakness (principal); J45.909 Unspecified asthma, uncomplicated; Z98.1 Arthrodesis status ==

== ENCOUNTER 2021-07-16 12:08 | Emergency (ER) | payer MEDICAID ==
[~2021-07-16] VITALS: Ht 160 cm; Wt 72.0 kg
[2021-07-16 12:30] LABS: BASOPHILS % (AUTO) 0 % (0-10); EOSINOPHILS % (AUTO) 0 % (0-10); HEMATOCRIT 41 % (35-52); HEMOGLOBIN 13.7 g/dL (11.5-16.0); LYMPHOCYTES # (AUTO) 0.8 10^3/uL (1.0-4.0); LYMPHOCYTES % (AUTO) 8 % (12-44); MEAN CORPUSCULAR HEMOGLOBIN 29 pg (25-34); MEAN CORPUSCULAR HGB CONC 33 g/dL (32-36); MEAN CORPUSCULAR VOLUME 87 fL (80-99); MEAN PLATELET VOLUME 10.4 fL (9.0-12.2); MONOCYTES # (AUTO) 0.2 10^3/uL (0.0-1.0); MONOCYTES % (AUTO) 2 % (0-12); NEUTROPHILS # (AUTO) 7.9 10^3/uL (1.8-7.8); NEUTROPHILS % (AUTO) 89 % (42-75); PLATELET COUNT 336 10^3/uL (130-400)
[2021-07-16] MEDS ORDERED: ONDANSETRON 4 MG/2 ML (SDV) Z0FRAN IVP ONE (12:30)
[2021-07-16 12:45] LABS: ALBUMIN 4.1 GM/DL (3.2-4.5); POTASSIUM 3.8 MMOL/L (3.6-5.0)
[2021-07-16] MEDS ORDERED: FAMOTIDINE 20MG/2ML IV (PEPCID) IVP ONE (12:45)
[2021-07-16] MEDS ORDERED: LACTATED RINGERS 1,000 ML IV ONE (12:45)
[2021-07-16 12:46] LABS: CALCIUM 9.9 MG/DL (8.5-10.1)
[2021-07-16 12:51] LABS: CREATININE SERUM 0.79 MG/DL (0.60-1.30)
[2021-07-16 12:54] LABS: MAGNESIUM 1.7 MG/DL (1.6-2.4)
[2021-07-16 12:55] LABS: NEUTROPHILS % (MANUAL) 93 %
[2021-07-16 12:56] LABS: BASOPHILS % (MANUAL) 0 %; EOSINOPHILS % (MANUAL) 0 %; LYMPHOCYTES % (MANUAL) 6 %; MONOCYTES % (MANUAL) 1 %
[2021-07-16 12:57] LABS: RBC MORPH NORMAL
[2021-07-16] MEDS ORDERED: LIDOCAINE 2% VISCOUS 15 ML UDC PO ONE (13:45)
[2021-07-16] MEDS ORDERED: ANTACID SUSP 30 ML UDC (MYLANTA) PO ONE (13:45)
[2021-07-16] MEDS ORDERED: NS IV 500 ML 500 ML IV ONE (13:45)
--- NOTE | 2021-07-16 13:54 | ED General ---
General Chief Complaint: Dizziness/Syncope Stated Complaint: DIZZINESS/VOMITING Nursing Triage Note: ARRIVED VIA WC TO ROOM 03 WITH COMPLAINTS OF DIZZINESS ET VOMITING X7 DAYS. Source of Information: Patient Exam Limitations: No Limitations History of Present Illness Date Seen by Provider: Jul 16, 2021 Time Seen by Provider: 12:19 Initial Comments This 61-year-old woman presents to the emergency room with concerns about 1 week of nausea, vomiting, epigastric discomfort and dizziness/lightheadedness. Symptoms have been intermittent for about a week and do not seem to follow any specific pattern. She was seen in the clinic yesterday and received Zofran. She did well last night and was able to eat supper. However, this morning symptoms returned and she is having significant discomfort. She has never experienced anything quite like this in the past. She does have a history of gastric sleeve surgery. Review of chart also notes history of hiatal hernia on prior CT scan in 2018. Her gallbladder is surgically absent. She takes Nexium for GERD. She denies any fever. She is still passing flatus and has had some small bowel movements. She notes taking Saxenda injection therapy for weight m anagement and slowing of GI motility to improve absorption of nutrients after gastric sleeve surgery. Allergies and Home Medications Allergies Coded Allergies: cephalexin (Verified Allergy, Unknown, hives, 07/11/17) sulfamethoxazole (Verified Allergy, Unknown, 03/14/15) trimethoprim (Verified Allergy, Unknown, 03/14/15) Patient Home Medication List Home Medication List Reviewed: Yes Acyclovir (Acyclovir) 400 Mg Tablet, 400 MG PO Q8H PRN for COLD SORES, (Reported) Entered as Reported by: GLORIA GRAY on 02/03/16 1217 Albuterol Sulfate (Proair Hfa) 8.5 Gm Hfa.aer.ad, 2 PUFF IH Q6H PRN for WHEEZING, (Reported) Entered as Reported by: BENIGNO FAIR on 03/14/15 1244 Aspirin (Aspirin EC) 81 Mg Tablet.dr, 81 MG PO DAILY, (Reported) Entered as Reported by: ANGELLA HOLLAND on 02/02/16 1103 Budesonide/Formoterol Fumarate (Symbicort 80-4.5 Mcg Inhaler) 10.2 Gm Hfa.aer.ad, 2 PUFF IH BID PRN for SHORTNESS OF BREATH, (Reported) Entered as Reported by: GLORIA GRAY on 02/03/161216 Calcium Carbonate/Vitamin D3 (Calcium + Vitamin D Tablet) 1 Each Tablet, 2 TAB PO DAILY, (Reported) Entered as Reported by: GLORIA GRAY on 02/03/161222 Cholecalciferol (Vitamin D3) (Vitamin D3) 1,000 Unit Capsule, 1,000 UNIT PO DAILY, (Reported) Entered as Reported by: GLORIA GRAY on 02/03/16 122 Cyanocobalamin (Cyanocobalamin Injection) 1,000 Mcg/Ml Inj, 1,000 MCG IN MONTHLY, (Reported) Entered as Reported by: GLORIA GRAY on 02/03/161216 Epinephrine (Epipen 2-Dimitri) 0.3 Mg/0.3 Ml Auto.injct, 0.3 MG IJ UD PRN for ALLERGIC REACTION, (Reported) Entered as Reported by: GLORIA GRAY on 02/03/161216 Fluticasone Propionate (Fluticasone Propionate) 16 Gm [place].susp, 2 SPRAYS NSEACH BID PRN for ALLERGIES, (Reported) Entered as Reported by: GLORIA GRAY on 02/03/161216 Hydrocodone Bit/Acetaminophen (HYDROcodone/APAP 10/325 TABLET) 1 Each Tablet, 1 TAB PO DAILY PRN for PAIN, (Reported) Entered as Reported by: GLORIA GRAY on 02/03/161216 Hydrocodone Bit/Acetaminophen (Lortab 5 Mg Tablet) 1 Tab Tab, 1-2 TAB PO 4-6HR PRN for PAIN Prescribed by: DEBI REGALADO on 07/11/17 1527 Meloxicam (Meloxicam) 7.5 Mg Tablet, 7.5 MG PO BID PRN for PAIN, (Reported) Entered as Reported by: GLORIA GRAY on 02/03/161216 Montelukast Sodium (Montelukast Sodium) 10 Mg Tablet, 10 MG PO HS, (Reported) Entered as Reported by: GLORIA GRAY on 02/03/161216 Multivitamin (Multivitamins) 1 Each Tablet, 1 TAB PO DAILY, (Reported) Entered as Reported by: GLORIA GRAY on 02/03/16 122 Omeprazole (Omeprazole) 20 Mg Capsule.dr, 20 MG PO BID, (Reported) Entered as Reported by: GLORIA GRAY on 02/03/16 1217 Ondansetron (Ondansetron Odt) 4 Mg Tab.rapdis, 4 MG PO Q6H PRN for NAUSEA/VOMITING Prescribed by: GAURAV HORAN on 07/26/17 1313 Ondansetron (Ondansetron Odt) 4 Mg Tab.rapdis, 4 MG SL Q4H PRN for NAUSEA/VOMITING Prescribed by: DOMINGO MOYA on 07/16/21 1358 Pravastatin Sodium (Pravastatin Sodium) 40 Mg Tablet, 40 MG PO DAILY Prescribed by: CRISTIANE BARAJAS on 02/03/16 1446 Promethazine HCl (Promethazine Suppository) 12.5 Mg Supp.rect, 12.5 MG RC Q6H PRN for NAUSEA/VOMITING-2ND LINE Prescribed by: DOMINGO MOYA on 07/16/21 1358 Sucralfate (Carafate) 1 Gm Tablet, 1 GM PO QID Prescribed by: DOMINGO MOYA on 07/16/21 1358 Sumatriptan Succinate (Sumatriptan Succinate) 100 Mg Tablet, 100 MG PO UD PRN for MIGRAINE, (Reported) Entered as Reported by: GLORIA GRAY on 02/03/16 1217 Trazodone HCl (Trazodone HCl) 100 Mg Tablet, 100 MG PO HS, (Reported) Entered as Reported by: JATINDER COOL on 07/11/17 1149 Review of Systems Review of Systems Constitutional: no symptoms reported EENTM: no symptoms reported Respiratory: no symptoms reported Cardiovascular: no symptoms reported Gastrointestinal: see HPI Genitourinary: no symptoms reported : No Musculoskeletal: no symptoms reported Skin: no symptoms reported Psychiatric/Neurological: No Symptoms Reported Hematologic/Lymphatic: No Symptoms Reported Immunological/Allergic: no symptoms reported Past Mxndzkh-Fjddza-Uslgqy Hx Patient Social History Tobacco Use?: No Smoking Status: Former Smoker Substance use?: No Alcohol Use?: No Immunizations Up To Date COVID19 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 Seasonal Allergies Seasonal Allergies: Yes Past Medical History Surgeries: Yes (Gastric sleeve) Cystectomy, Gallbladder, 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, Oophorectomy, Orthopedic, Tonsillectomy Respiratory: Yes (COVID-20 May 2021) Asthma Cardiac: Yes High Cholesterol Neurological: Yes Headaches /Migraines 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 Genitourinary: Yes (KIDNEY MASS) Gastrointestinal: Yes Diverticulosis Musculoskeletal: Yes Degenerate Disk Disease, Osteoporosis, Arthritis Endocrine: No HEENT: Yes Cataract Loss of Vision: Bilateral Hearing Impairment: Denies Cancer: No Psychosocial: Yes Anxiety, Depression Integumentary: Yes Eczema Blood Disorders: No Adverse Reaction/Blood Tranf: No Family Medical History No Pertinent Family Hx Physical Exam Vital Signs Vital Signs - First Documented 07/16/21 12:20 Temp 36.3 Pulse 94 Resp 16 B/P (MAP) 122/58 (79) Pulse Ox 95 O2 Delivery Room Air Capillary Refill : Less Than 3 Seconds Height, Weight, BMI Height: 5'3.00" Weight: 150lbs. 0.0oz. 68.922920ub; 28.00 BMI Method:Stated General Appearance: WD/WN HEENT: PERRL/EOMI, Normal ENT Inspection, Pharynx Normal Neck: Normal Inspection Respiratory: Lungs Clear, Normal Breath Sounds, No Accessory Muscle Use Cardiovascular: Regular Rate, Rhythm, No Edema, No Murmur Gastrointestinal: Normal Bowel Sounds, Soft; No Distended; Tenderness (Epigastrium) Extremity: Normal Inspection, Non Tender, No Pedal Edema Neurologic/Psychiatric: Alert, Oriented x3, No Motor/Sensory Deficits, Normal Mood/Affect, progress clerk II-XII Norm as Tested Skin: Normal Color, Warm/Dry Progress/Results/Core Measures Suspected Sepsis SIRS Temperature: Pulse: 94 Respiratory Rate: 16 Laboratory Tests 07/16/21 12:20: White Blood Count 9.0 Blood Pressure 122 /58 Mean: 79 Laboratory Tests 07/16/21 12:20: Creatinine 0.79, Platelet Count 336, Total Bilirubin 1.0 Results/Orders Lab Results Laboratory Tests Test 07/16/21 12:20 Range/Units White Blood Count 9.0 4.3-11.0 10^3/uL Red Blood Count 4.73 3.80-5.11 10^6/uL Hemoglobin 13.7 11.5-16.0 g/dL Hematocrit 41 35-52 % Mean Corpuscular Volume 87 80-99 fL Mean Corpuscular Hemoglobin 29 25-34 pg Mean Corpuscular Hemoglobin Concent 33 32-36 g/dL Red Cell Distribution Width 13.2 10.0-14.5 % Platelet Count 336 130-400 10^3/uL Mean Platelet Volume 10.4 9.0-12.2 fL Immature Granulocyte % (Auto) 0 % Neutrophils (%) (Auto) 89 H 42-75 % Lymphocytes (%) (Auto) 8 L 12-44 % Monocytes (%) (Auto) 2 0-12 % Eosinophils (%) (Auto) 0 0-10 % Basophils (%) (Auto) 0 0-10 % Neutrophils # (Auto) 7.9 H 1.8-7.8 10^3/uL Lymphocytes # (Auto) 0.8 L 1.0-4.0 10^3/uL Monocytes # (Auto) 0.2 0.0-1.0 10^3/uL Eosinophils # (Auto) 0.0 0.0-0.3 10^3/uL Basophils # (Auto) 0.0 0.0-0.1 10^3/uL Immature Granulocyte # (Auto) 0.0 0.0-0.1 10^3/uL Neutrophils % (Manual) 93 % Lymphocytes % (Manual) 6 % Monocytes % (Manual) 1 % Eosinophils % (Manual) 0 % Basophils % (Manual) 0 % Blood Morphology Comment NORMAL Sodium Level 139 135-145 MMOL/L Potassium Level 3.8 3.6-5.0 MMOL/L Chloride Level 106 98-107 MMOL/L Carbon Dioxide Level 20 L 21-32 MMOL/L Anion Gap 13 5-14 MMOL/L Blood Urea Nitrogen 14 7-18 MG/DL Creatinine 0.79 0.60-1.30 MG/DL Estimat Glomerular Filtration Rate 85 BUN/Creatinine Ratio 18 Glucose Level 113 H 70-105 MG/DL Calcium Level 9.9 8.5-10.1 MG/DL Corrected Calcium 9.8 8.5-10.1 MG/DL Magnesium Level 1.7 1.6-2.4 MG/DL Total Bilirubin 1.0 0.1-1.0 MG/DL Aspartate Amino Transf (AST/SGOT) 11 5-34 U/L Alanine Aminotransferase (ALT/SGPT) 11 0-55 U/L Alkaline Phosphatase 99 40-136 U/L C-Reactive Protein High Sensitivity 0.13 0.00-0.50 MG/DL Total Protein 7.0 6.4-8.2 GM/DL Albumin 4.1 3.2-4.5 GM/DL Lipase 48 8-78 U/L My Orders Orders - BRUEGGEMANN,DOMINGO T MD Cbc With Automated Diff (07/16/21 12:19) Comprehensive Metabolic Panel (07/16/21 12:19) Ed Iv/Invasive Line Start (07/16/21 12:19) Ondansetron Injection (Zofran Injectio (07/16/21 12:30) Manual Differential (07/16/21 12:20) Famotidine Injection (Pepcid Injection) (07/16/21 12:45) Lactated Ringers (Lr 1000 Ml Iv Solution (07/16/21 12:45) Lipase (07/16/21 12:33) Magnesium (07/16/21 12:33) Hs C Reactive Protein (07/16/21 12:33) Lidocaine 2% Viscous 15 Ml (Xylocaine Vi (07/16/21 13:45) Antacid Suspension (Mylanta Suspension (07/16/21 13:45) Ns Iv 500 Ml (Sodium Chloride 0.9%) (07/16/21 13:45) Ua Culture If Indicated (07/16/21 14:01) Medications Given in ED Current Medications Medications Dose Ordered Sig/Etelvina Route Start Time Stop Time Status Last Admin Dose Admin Al Hydrox/Mg Hydrox/Simethicone 30 ml ONCE ONCE PO 07/16/21 13:45 07/16/21 13:46 DC 07/16/21 13:46 30 ML Famotidine 20 mg ONCE ONCE IVP 07/16/21 12:45 07/16/21 12:46 DC 07/16/21 12:55 20 MG Lactated Ringer's 1,000 ml @ 0 mls/hr Q0M ONCE IV 07/16/21 12:45 07/16/21 12:46 DC 07/16/21 12:55 1,000 MLS/HR Lidocaine HCl 15 ml ONCE ONCE PO 07/16/21 13:45 07/16/21 13:46 DC 07/16/21 13:46 15 ML Ondansetron HCl 8 mg ONCE ONCE IVP 07/16/21 12:30 07/16/21 12:31 DC 07/16/21 12:35 8 MG Sodium Chloride 500 ml @ 0 mls/hr Q0M ONCE IV 07/16/21 13:45 07/16/21 13:46 DC 07/16/21 13:45 500 MLS/HR Vital Signs/I&O 07/16/21 07/16/21 12:20 14:38 Temp 36.3 Pulse 94 93 Resp 16 16 B/P (MAP) 122/58 (79) 138/90 Pulse Ox 95 98 O2 Delivery Room Air Room Air Capillary Refill : Less Than 3 Seconds Blood Pressure Mean: 79 Progress Note : Progress Note Patient was treated with Pepcid, Zofran, and IV fluids with some improvement. She was further treated with a GI cocktail due to rebounding epigastric discomfort. GI cocktail did significantly improve her epigastric discomfort. She stated her dizziness (described as a spinning or vertiginous sensation) resolved with IV fluids. However, she still had some lightheadedness upon standing. Standing blood pressure was normal. She received an additional 500 mL normal saline bolus prior to discharge. I suspect her symptoms are multifactorial. Gastric dysfunction secondary to gastric sleeve surgery may be a contributing factor as well as gastritis, hiatal hernia, and GERD. She very well may have viral illness as well. Patient reports having COVID-19 in May and wonders if this may have contributed as well. I am recommending dietary adjustments as well as adding Carafate. I have advised her to discuss use of Saxenda with her prescriber as the symptoms she is experiencing today are known side effects. See discharge instructions for further discussion. Departure Impression Primary Impression: Nausea & vomiting Qualified Codes: R11.2 - Nausea with vomiting, unspecified Additional Impressions: Epigastric pain Dizziness Disposition: 01 HOME, SELF-CARE Condition: Improved Departure-Patient Inst. Referrals: BARBARA GRANT (PCP/Family) Primary Care Physician Patient Instructions: Abdominal Pain, Adult ED, Acid Reflux and Gastroesophageal Reflux Disease in Adults, Hiatal Hernia Add. Discharge Instructions: 1. Nausea and vomiting - You may use Zofran (ondansetron) as prescribed for nausea and vomiting. Dissolve 1 tablet under the tongue every 4 hours as needed. You may use the Phenergan (promethazine) suppository as a backup method for nausea control if Zofran is not sufficient. Please be advised Phenergan may cause significant drowsiness, so use it with caution. 2. Upper abdominal pain You may be experiencing gastritis (inflammation of the stomach), pain from acid reflux, and/or pain from your hiatal hernia. Continue taking Nexium as previously prescribed. Add Carafate as prescribed from the ER. Dissolve or crush and mix with 5 to 10 mL water to make a slurry. Take 30 minutes before eating or drinking at mealtimes and then again at bed. Carafate creates a physical barrier between your stomach acid and the lining of the stomach and esophagus. Discuss referral to a surgeon or master control technician for endoscopy at your follow-up appointment. Your hiatal hernia and pain should be further evaluated by direct visualization with endoscopy (EGD). With the treatments recommended, your pain should gradually improve over the next several days. 3. Saxenda - The symptoms you were experiencing this past week are known side effects of Saxenda. Discuss further use with your prescribing provider. 4. To help reduce irritation on your stomach and esophagus, avoid the following: Eating large meals, eating close to bedtime, caffeine, carbonation, chocolate, citrus fruits and juices, tomato products, mints, spicy foods, fatty/greasy foods, NSAID medications such as ibuprofen or naproxen, alcohol, tobacco products, and anything else you know irritates your stomach. You can also elevate the head of your bed at night to reduce acid reflux. 5. Call with questions and concerns and return to the ER if you have any worsening of condition. All discharge instructions reviewed with patient and/or family. Voiced un derstanding. Scripts Sucralfate (Carafate) 1 Gm Tablet 1 GM PO QID, #120 TAB Dissolve or crush and mix into 5-10 ml water to make slurry. Take 30 minutes before eating/drinking at meals and before bed. Prov: DOMINGO PERKINS MD 07/16/21 Promethazine HCl (Promethazine Suppository) 12.5 Mg Supp.rect 12.5 MG RC Q6H PRN for NAUSEA/VOMITING-2ND LINE, #10 SUPP.RECT Prov: DOMINGO PERKINS MD 07/16/21 Ondansetron (Ondansetron Odt) 4 Mg Tab.rapdis 4 MG SL Q4H PRN for NAUSEA/VOMITING, #10 TAB Prov: DOMINGO PERKINS MD 07/16/21 Copy Copies To 1: TED LAUREN JOSHUA T MD Jul 16, 2021 13:54
[2021-07-16] MEDS ORDERED: ONDA4TAB11 SL (13:58)
[2021-07-16] MEDS ORDERED: SUCR1TAB36 PO (13:58)
[2021-07-16] MEDS ORDERED: PROM12.566 RC (13:58)
[2021-07-16 14:38] VITALS: BP 138/90
== END 2021-07-16 14:38 | disposition home or self-care (01) ==
LOC: EDUNIT# 12:08 → ER 12:12
DX: R11.2 Nausea with vomiting, unspecified (principal); R42 Dizziness and giddiness; K21.9 Gastro-esophageal reflux disease without esophagitis; Z87.891 Personal history of nicotine dependence
CPT/HCPCS: 36415; 80053; 83690; 83735; 85007; 85027; 86141

== ENCOUNTER → 2023-03-29 | Outpatient (CLI) | payer MEDICAID ==
[~2023-03-29] MED LIST changes: +ALBU8.5H6 IH; +MONT-47 PO; -MONT10TA21 PO; +ONDA4TAB11 SL; +PROM12.566 RC; -RT-ALBUINH IH; +SUCR1TAB36 PO
--- NOTE | 2023-03-29 12:51 | Diagnostic Imaging Report ---
INDICATION: Postmenopausal screening. COMPARISON: 12/11/2015 FINDINGS: AP Spine L1-L4: [BMD (g/cm2): NA] [T-Score: NA] [Z-Score: NA] [BMD Previous: NA] [BMD % Change: NA] LT Hip Neck: [BMD (g/cm2): 0.584] [T-Score: -3.3] [Z-Score: -1.9] LT Hip Total: [BMD (g/cm2):0.648] [T-Score:-2.9] [Z-Score: -1.8] [BMD Previous: 0.882] [BMD % Change: -26.5*] RT Hip Neck: [BMD (g/cm2):0.628] [T-Score:-3.0] [Z-Score:-1.6] RT Hip Total: [BMD (g/cm2):0.651] [T-score:-2.8] [Z-Score:-1.8] [BMD Previous:0.806] [BMD % Change:19.2*] *Indicates significant change from prior examination based on 95% confidence level. World Health Organization criteria for BMD interpretation classify patients as Normal (T-score at or above -1.0), Osteopenic (T-score between -1.0 and -2.5) or Osteoporotic (T-score at or below -2.5). LIMITATIONS AND MODIFICATION: None. FRACTURE RISK (FRAX SCORE): The ten year probability of (%): Major Osteoporotic Fracture: [18.1] Hip Fracture: [5.9] IMPRESSION: 1. Osteoporosis. 2. Bone mineral density has decreased by a statistically significant amount, as detailed above. 3. See below National Osteoporosis Foundation guidelines on when to potentially initiate pharmacologic therapy. Based on the National Osteoporosis Foundation Guidelines, pharmacologic treatment should be initiated in any of the following, unless clinical conditions suggest otherwise: * Any patient with prior fragility fracture of the hip or vertebrae. A spine fracture indicates 5X risk for subsequent spine fracture and 2X risk for subsequent hip fracture. * Osteoporosis (T-score <-2.5). * Postmenopausal women and men age 50 and older with low bone mass/osteopenia (T-score between -1.0 and -2.5) by DXA and 10-year major osteoporotic fracture greater than 20% or a 10-year probability of hip fracture greater than 3%. These fracture risks are supplied above in the FRAX score, if applicable. * Clinician judgement and/or patient preferences may indicate treatment for people with 10-year fracture probabilities above or below these levels. Dictated by: Dictated on workstation # [id number]
== END ==
LOC: RAD 12:30
PROVIDERS: ATTEND Nurse Practitioner Family
DX: M81.0 Age-related osteoporosis without current pathological fracture (principal)
CPT/HCPCS: 77080